=== PATIENT | male | born 1960 | race Caucasian/White ===

== ENCOUNTER 2021-02-04 13:12 | Outpatient (CLI) | payer OTHER, SELFPAY ==
--- NOTE | ~2021-02-04 | PE_ITS ---
EXAMINATION: PET skull to mid thigh DATE: 02/04/2021 14:49 INDICATION: Normal chest CT. TECHNIQUE: 11.5 mCi of 18-fluorodeoxyglucose (18-FDG) was administered i.v. Low dose computed tomogra phy (CT) images were acquired from the base of the brain to the proximal thighs for attenuation corre ction and anatomic localization. Positron emission tomography (PET) images were acquired after inject ion. Images including fused PET/CT images were reconstructed in axial, coronal, and sagittal planes. Automatic exposure control is employed as a dose reduction technique. COMPARISON: None FINDINGS: Head/neck: There is mild FDG or nasal sinuses and mastoids are pneumatized. No hypermetabolic activity otherwise noted in the head/neck. No cervical lymphadenopathy. Uptake of the laryngeal soft tissues at the lev el of the hyoid without focal mass, likely physiologic. Chest: There are shotty mediastinal lymph nodes without abnormal FDG uptake, likely reactive. There is ather osclerosis of the aorta. Heart size is normal. No significant pleural or pericardial effusion. There is severe emphysema. There is scarring at the right lung apex with associated calcifications. There i s mild FDG uptake with maximum SUV of 2.1, indeterminate for malignancy. There is linear scarring of the left midlung without abnormal FDG uptake. There is a pleural-based right lower lobe nodule measur ing 6 mm without abnormal FDG uptake. Max SUV is 0.8. There is a calcified granuloma in the left uppe r lobe. No endobronchial lesions. Small hiatal hernia. There is mild uptake in the posterior margin o f the distal esophagus with maximum SUV of 2.4, although no discrete mass is identified. No significa nt pleural or pericardial effusion. Abdomen/pelvis/proximal thighs: The liver, spleen, pancreas, adrenal glands and right kidney are unremarkable. There are left renal c ysts. There is physiologic uptake in the colon. There is atherosclerosis of the aorta without aneurys m. No lymphadenopathy. No free air or free fluid. Nonobstructive bowel gas pattern. Bladder is collap sed limiting evaluation for wall thickening. Gallbladder is present. Bones/Soft tissues: Mild-moderate thoracic spondylosis. No abnormal hypermetabolic activity is identified in the bones or soft tissues. IMPRESSION: 1. Nodular scarring right lung apex with mild FDG uptake measuring 2.1 cm, most likely postinfectious /inflammatory, although malignancy is not entirely excluded. There is additional linear scarring in t he left midlung without abnormal FDG uptake. Follow-up low dose CT chest in 6 months recommended. 2: Pleural-based 6 mm right lower lobe nodule without abnormal FDG uptake, likely benign. 3: Mild uptake posterior margin of the distal esophagus with maximum SUV of 2.4. No discrete mass katrina ntified. This is most likely physiologic. Consider correlation with upper GI examination or endoscopy as clinically indicated. 4: Severe emphysema. Reviewed, dictated and finalized at location A. NE DEPUTY IMPRESSION: 1. Nodular scarring right lung apex with mild FDG uptake measuring 2.1 cm, most likely postinfectious/inflammatory, although malignancy is not entirely exclud ed. There is additional linear scarring in the left midlung without abnormal FD G uptake. Follow-up low dose CT chest in 6 months recommended. 2: Pleural-based 6 mm right lower lobe nodule without abnormal FDG uptake, like ly benign. 3: Mild uptake posterior margin of the distal esophagus with maximum SUV of 2.4 . No discrete mass identified. This is most likely physiologic. Consider correl ation with upper GI examination or endoscopy as clinically indicated. 4: Severe emphysema.
[2021-02-04 13:37] LABS: Glucose Point of Care 87 mg/dl (65-105)
== END 2021-02-04 13:13 | disposition home or self-care (01) ==
LOC: ANHIMG 13:18
PROVIDERS: Visit Provider Internal Medicine
DX: R91.1 Solitary pulmonary nodule (principal); J43.9 Emphysema, unspecified
CPT/HCPCS: 78815; A9552

== ENCOUNTER 2022-04-25 16:53 | Inpatient (IN) | payer OTHER, SELFPAY ==
[2022-04-25] VITALS (27 sets, daily range): BP systolic 97–122; BP diastolic 58–78; PULSE 75–96; RESP 15–24; TEMP 36.4–36.6; O2SAT 62–98; BMI 25.9
--- NOTE | ~2022-04-25 | XR_ITS ---
XR chest 2V 05/02/2022 13:22 Indication: Hypoxia. Procedure: 2 view chest Comparison: CT dated 04/25/2022 Findings: There is emphysema with scarring in the upper lobes. Heart size normal. No pleural effusion or pneumothorax. No acute osseous abnormality. Impression: 1: No acute cardiopulmonary disease. 2: Emphysema with scarring of the upper lobes. Reviewed, dictated and finalized at location A. Impression: 1: No acute cardiopulmonary disease. 2: Emphysema with scarring of the upper lobes.
--- NOTE | ~2022-04-25 | XR_ITS ---
Portable chest x-ray Comparison: None Clinical History: Shortness of breath Findings: There is probable mild central congestive change. Suspected COPD. There is right apical de nsity, nonspecific, possibly chronic scarring. Cardiomediastinal silhouette is stable. Bones and sof t tissues are unremarkable. Impression: COPD with right apical density which could reflect chronic scarring versus possibly nodule. Consider CT to further evaluate. Probable minimal central congestive change. Reviewed, dictated and finalized at location . ITTER Impression: COPD with right apical density which could reflect chronic scarring versus poss ibly nodule. Consider CT to further evaluate. Probable minimal central congestive change.
--- NOTE | ~2022-04-25 | US_ITS ---
Renal-Bladder ultrasound Clinical History: Renal failure Technique: Real-time sonographic imaging of the kidneys and urinary bladder was performed. Findings: The right kidney measures 10.4 cm in length and the left kidney measures 11.4 cm. There is no hydronephrosis or renal calculus identified. Renal cortical echogenicity is within normal limits. Left renal cysts noted. The urinary bladder is partially distended at the time of this exam. No intraluminal echoes are ident ified. No abnormal wall thickening is seen. Impression: No significant abnormality seen. Reviewed, dictated and finalized at location . Impression: No significant abnormality seen.
--- NOTE | ~2022-04-25 | CT_ITS ---
Clinical Indication: Hypoxia, chest pain CT Scan of the Chest with Contrast: Technique: Contiguous sections were acquired throughout the chest after intravenous administration of 200 cc of Omnipaque 350. Dose reduction technique was used on this scan by utilizing automated expos ure control and iterative reconstruction technique. The dose-length product (DLP) was 661.92 mGy-cm. Findings: There is no evidence of any significant mediastinal, hilar or axillary lymphadenopathy. There is no f illing defect in the pulmonary arterial tree to suggest pulmonary embolus. There is no evidence of ao rtic dissection or aneurysm. There is no evidence of pleural or pericardial effusion. There is severe emphysema with right apical scarring. Images through the upper abdomen reveal no abnormalities. Impression: No evidence of pulmonary embolus, aortic dissection, or aortic aneurysm. Severe emphysema with right apical scarring. Reviewed, dictated and finalized at [facility]. L SORTER Impression: No evidence of pulmonary embolus, aortic dissection, or aortic aneurysm. Severe emphysema with right apical scarring.
--- NOTE | ~2022-04-25 | XR_ITS ---
MODIFIED ESOPHAGRAM HISTORY: Difficulty swallowing TECHNIQUE: Modified barium esophagram was performed by speech pathologist under radiologist fluorosco pic guidance. This was recorded on tape. The exam was reviewed on 05/03/2022 11:40 CDT. The DAP for this procedure was 0.415 Gycm2. Fluoroscopy time is 0.8 minutes. FINDINGS: Lateral projection of the cervical spine demonstrates normal alignment. There is vallecul ar residue. Normal swallowing function without penetration or aspiration.. IMPRESSION: 1: No evidence for laryngeal penetration or aspiration. 2: Please refer to speech pathologist report for additional detail. Reviewed, dictated and finalized at location A.
--- NOTE | 2022-04-25 17:06 | ECG_ITS ---
Measurements Intervals [place] Rate: 93 P: 65 HI: 159 QRS: 128 QRSD: 134 T: -43 QT: 373 QTc: 464 Interpretive Statements SINUS RHYTHM VENTRICULAR PREMATURE COMPLEX RIGHT BUNDLE BRANCH BLOCK AND POSSIBLE RIGHT VENTRICULAR HYPERTROPHY LEFT POSTERIOR FASCICULAR BLOCK ST-T WAVE ABNORMALITY IN ANTEROLATERAL LEADS- CONSIDER ISCHEMIA BASELINE ARTIFACT- I, II, III, AVR, AVL, AVF ABNORMAL ECG NO PREVIOUS ECG AVAILABLE FOR COMPARISON Electronically Signed On 04-25-2022 17:16:03 [employer]OR [employer] by Amaury Chinchilla D.O.
--- NOTE | 2022-04-25 17:09 | ED.SOB ---
HPI - SOB/Dyspnea General Chief Complaint: Shortness of Breath/Dyspnea <Lillian Sultana PA-C - Last Filed: 04/25/22 21:18> Stated Complaint: SHORT OF BREATH <Lillian Sultana PA-C - Last Filed: 04/25/22 21:18> Time Seen by Provider: 04/25/22 17:00 <Lillian Sultana PA-C - Last Filed: 04/25/22 21:18> History of Present Illness HPI Narrative: Patient is a 61-year-old male with a history of COPD and prostate cancer status post radiation, currently in remission, here via private vehicle with his for evaluation of shortness of breath. Patient states that he has progressively felt more dyspneic over the past 2 months. He initially had some relief from his home inhalers but over the past several days he has had no relief and has been profoundly dyspneic at rest. He wears 6 L O2 at all times but has gone up to 8 L at home. Over the past several days he has also developed a chest tightness that he describes as a thumping sensation that he has never had in the past, present in the center of his chest and does not radiate. Also reports a dry cough. No fevers, chills, nausea or vomiting, diaphoresis, leg swelling. Reports unintentional weight loss recently. He wishes to be a DNR/DNI. He was admitted to [facility] last week for COPD exacerbation. <Lillian Sultana PA-C - Last Filed: 04/25/22 21:18> Related Data Home Medications: Home Medications Medication Instructions Recorded Confirmed aspirin 81 mg tablet,delayed 81 mg PO DAILY 04/25/22 04/25/22 release bicalutamide 50 mg tablet 50 mg PO DAILY 04/25/22 04/25/22 budesonide-formoterol HFA 160 2 puff inhalation BID 04/25/22 04/25/22 mcg-4.5 mcg/actuation aerosol inhaler (Symbicort) cholecalciferol (vitamin D3) 50 50 mcg PO DAILY 04/25/22 04/25/22 mcg (2,000 unit) capsule (Vitamin D3) fluticasone fur. 100 mcg-umeclid 1 inh inhalation DAILY 04/25/22 04/25/22 62.5 mcg-vilant 25 mcg inhalat.powder (Trelegy Ellipta) furosemide 40 mg tablet 40 mg PO DAILY 04/25/22 04/25/22 megestrol 20 mg tablet 20 mg PO DAILY 04/25/22 04/25/22 meloxicam 7.5 mg tablet 7.5 mg PO DAILY 04/25/22 04/25/22 multivitamin 1 tablet PO DAILY 04/25/22 04/25/22 ondansetron HCl 4 mg tablet See Rx Instructions .Route 04/25/22 04/25/22 .COMPLEX PRN Nausea tiotropium bromide 2.5 2 puff inhalation DAILY 04/25/22 04/25/22 mcg/actuation mist for inhalation (Spiriva Respimat) <Lillian Sultana PA-C - Last Filed: 04/25/22 21:18> Allergies/Adverse Reactions: Allergies Allergy/AdvReac Type Severity Reaction Status Date / Time garlic AdvReac Vomiting Verified 04/25/22 17:12 green pepper AdvReac Vomiting Verified 04/25/22 17:12 onion AdvReac Vomiting Verified 04/25/22 17:12 <Lillian Sultana PA-C - Last Filed: 04/25/22 21:18> Review of Systems Review of Systems: Gen: Denies fevers or chills Eyes: Denies eye pain or visual change ENT: Denies congestion Respiratory: Reports shortness of breath and cough CV: Denies chest pain or palpitations GI: Denies abdominal pain nausea, emesis or diarrhea : denies burning, urgency, frequency or hematuria Musculoskeletal: Denies back pain or muscle pain Neuro: Denies numbness, tingling, weakness or focal weakness Skin: Denies rash Except as documented, all other systems reviewed and negative <Lillian Sultana PA-C - Last Filed: 04/25/22 21:18> [facility] Social History Social History: Social History Smoking packs per day: 1.25 Smoking cigarettes per day: 25.0 Years smoked: 30 Smoking pack-years: 37.50 Smoking status: Former smoker Tobacco type: cigars Additional smoking assessment comments: quit for 15 years in between Alcohol intake: former Substance use: former Substance use type: marijuana Lack of Transportation: No Lack of Food: Never True Current Housing: I Have Housing Concerned About Future Housing: No Difficulty Paying
[2022-04-25 17:20] LABS: Basophils Percent Auto 0.7 % (0.2-1.2); Eosinophils Absolute Auto 0.1 K/mm3 (0-0.3); Eosinophils Percent Auto 1.3 % (0-4.4); Hemoglobin 14.3 g/dL (14.0-18.0); Immature Granulocyte Absolute 0.02 K/mm3 (0.00-0.031); Immature Granulocyte Percent A 0.3 % (0-0.5); Lymphocytes Percent Auto 16.7 % (18.3-44.2); Mean Corpuscular HGB Conc 31.1 g/dl (32-36); Mean Corpuscular Hemoglobin 35.8 pg (26-34); Mean Corpuscular Volume 115.3 fl (80-100); Mean Platelet Volume 11.4 fl (7.4-10.4); Monocytes Absolute Auto 0.8 K/mm3 (0.1-0.6); Monocytes Percent Auto 13.5 % (2.6-8.5); Neutrophils Percent Auto 67.5 % (45.5-73.1); Platelet Count Result 154 k/mm3 (150-375); Red Blood Count 3.99 M/mm3 (4.6-6.20); Red Cell Distribution Width 14.8 % (11.5-14.5)
[2022-04-25 17:30] LABS: Alanine Aminotransferase 24 U/L (6-50); Albumin Level 4.3 g/dL (3.5-5.1); Alkaline Phosphatase 63 U/L (38-126); Anion Gap 10 mmol/L (8-16); Aspartate Amino Transferase 35 U/L (17-59); Bilirubin,Total 1.1 mg/dL (0.2-1.3); Blood Urea Nitrogen 28 mg/dL (9-20); Carbon Dioxide 26 mmol/L (22-30); Chloride 103 mmol/L (98-107); Estimated CRCL calculation 37 ml/min; Estimated Glomerular Filt Rate 39; Glucose 140 mg/dL (65-110); Potassium 3.7 mmol/L (3.4-5.0); Sodium 139 mmol/L (137-145)
[2022-04-25] MEDS: ALBUTEROL SULFATE NEB 2.5 MG/3 ML INH INHALATION (17:30)
[2022-04-25] MEDS: IPRATROPIUM BR 0.02% INH SOLN 0.5 MG/2.5 ML VIAL INHALATION (17:30)
[2022-04-25 17:32] LABS: INR 1.2; Prothrombin Time 14.4 Seconds (11.1-14.7)
[2022-04-25 17:33] LABS: Partial Thromboplastin Time 28.7 SECONDS (22.3-36.8)
[2022-04-25 17:38] LABS: Alveolar/Arterial O2 Gradient 364.5 mmHg; Base Excess ABG 1.5 mEq/l (+/-2.0); Fractional Inspired Oxygen 68 %; HCO3 ABG 25.1 mEq/l (22.0-26.0); Oxygen Content ABG 19.9 %vol (16.0-22.0); Oxygen Saturation ABG 96.4 % (95.0-100.0); Oxyhemoglobin 93.5 % THb (90.0-100.0); PCO2 ABG 36.8 mmHg (35.0-45.0); PO2 ABG 80.6 mmHg (80.0-100.0); PO2 FiO2 Ratio Arterial Blood 1.19 %; Total Hemoglobin 15.1 g/dL (12.0-18.0); pH ABG 7.452 (7.350-7.450)
[2022-04-25] MEDS: methylPREDNISolone SOD SUCC 125 MG VIAL IV PUSH (17:38)
[2022-04-25] MEDS: ASPIRIN 81 MG CHEWABLE TABLET 324 MG PO (17:38)
[2022-04-25 17:39] LABS: Device HIGH FLOW NASAL CANN; Modified Allen's Test Pass; Site Drawn RIGHT RADIAL
[2022-04-25 17:47] LABS: NT Pro B Type Natriuretic Pept 10600 pg/mL (19.9-100); Troponin I 0.719 ng/mL (0.000-0.034)
[2022-04-25 17:53] LABS: Lactic Acid Reflex 3.1 mmol/L (0.7-2.0)
[2022-04-25 18:19] LABS: Influenza A QL RT-PCR Negative (Negative); Influenza B QL RT-PCR Negative (Negative); SARS-CoV-2 RNA PCR Negative
[2022-04-25 18:20] LABS: Lipase 132 U/L (23-300)
[2022-04-25] MEDS: ONDANSETRON INJ 4 MG/2 ML VIAL IV PUSH (18:25)
[2022-04-25] MEDS: SODIUM CHLORIDE 0.9% IV 1,000 ML 999 ML IV CONT ×2 (18:25→23:09)
[2022-04-25] MEDS: NITROGLYCERIN SL 0.4 MG TABLET SUBLINGUAL (18:30)
[2022-04-25] MEDS: HEPARIN SODIUM 5,000 UNITS/ML VIAL 4000 UNITS IV PUSH (18:55)
[2022-04-25] MEDS: HEPARIN SOD/D5W 100 UNITS/ML 25,000 UNITS/250 ML BAG 9 UNITS IV CONT (18:57)
--- NOTE | 2022-04-25 20:21 | ADMGEN ---
This patient, Bijan Real, was admitted to IMU Room 212-01. Patient/family oriented to hospital policies and general routines including ID bracelet, bed and alarms, visiting hours, pain management, procedures, bathroom and other care routines, personal items, smoking policy, room service/diet, and visiting hours. Information on how to activate the Rapid Response Team has been discussed. Patient/Family are encouraged to report perceived risks to care and to ask questions if they do not understand what they are told or what they should do.
[2022-04-25 20:40] LABS: Troponin I 0.998 ng/mL (0.000-0.034)
[2022-04-25 20:41] LABS: Reflex Lactic Acid Yes or No Add Lactic
[2022-04-25 21:42] LABS: Lactic Acid 3.3 mmol/L (0.7-2.0)
[2022-04-25 21:44] LABS: Magnesium 1.9 mg/dL (1.6-2.3)
--- NOTE | 2022-04-25 21:53 | PM.IMHP ---
H&P: HPI History of Present Illness Date/Time: 04/25/22 21:53 Chief Complaint: Shortness of breath dyspnea Narrative: This is a 61-year-old male patient who has a history of COPD, prostate cancer status post radiation status post remission, and chronic hypoxia chronically on oxygen at 6 L per nasal cannula. The patient has felt increased dyspnea or last 2 months. The patient came to the emergency room with his mother. The patient stated that he felt some tightness in his chest and that he also had a dry cough. He denied any fever chills or any nausea vomiting or diarrhea no diaphoresis. No leg swelling. The patient stated he does wish to be a DNR DNI. The patient was admitted to [facility] last week for COPD exacerbation. The patient's oxygen was turned up to 15 L in the emergency room. Patient's O2 saturation were all way down to 62% with a 6 L initially now is O2 saturations came up to 96% with oxygen at 15 L per nasal cannula. Patient's blood pressure was also low. ABGs pH 7.452 and the rest of the values were within normal limits. BUN is 28 creatinine 1.80. Lactic acid is 3.3 and glucose 140. No previous labs for comparison. Troponin 0.719 and 0.998 and 0.854. Chest CTA was read as the followingNo evidence of pulmonary embolus, aortic dissection, or aortic aneurysm. Severe emphysema with right apical scarring. Chest x-ray was read as the followingCOPD with right apical density which could reflect chronic scarring versus possibly nodule. Consider CT to further evaluate. Probable minimal central congestive change. The patient was given nebulizer treatments, IV fluids, IV Tylenol, and he was started on heparin drip. He was also given an aspirin and Zofran as well as a nitro sublingual. Cardiology has been consulted. The patient is being admitted to inpatient status on the date of service of 04/25/2022 Review of Systems Review of Systems: See HPI All systems reviewed & are unremarkable except as noted in HPI and below Constitutional: Constitutional: Reports as per HPI and Reports no additional constitutional complaints Eyes: Eyes: Reports as per HPI and Reports no additional eye complaints ENT: Reports system reviewed and no additional complaints, except as documented and Reports Normal hearing present Cardiovascular: Cardiovascular: Reports no additional cardiovascular complaints Respiratory: Respiratory: Reports no additional respiratory complaints and Reports no additional respiratory complaints Gastrointestinal: Gastrointestinal: Reports as per HPI and Reports no additional gastrointestinal complaints Musculoskeletal: Musculoskeletal: Reports no additional musculoskeletal complaints Integumentary/Breasts: Skin/Breast: Reports system reviewed and no additional complaints, except as docu and Reports as per HPI Neurologic: Reports system reviewed and no additional complaints, except as documented, Reports as per HPI and Reports Normal hearing present Psychiatric: Psychiatric: Reports no additional psychiatric complaints and Reports as per HPI Endocrine: Endocrine: Reports no additional endocrine complaints Hematologic/Lymphatic: Hematologic/Lymphatic: Reports no additional hematologic/lymphatic complaints Allergic/Immunologic: Allergic/Immunologic: Reports no additional allergic/immunologic complaints [facility] Past Medical History Medical History (Updated 04/26/22 @ 01:09 by Lori Barclay NP) Chronic respiratory failure with hypoxia, on home oxygen therapy COPD (chronic obstructive pulmonary disease) Diverticulitis History of prostate cancer Surgical History Surgical History (Updated 04/26/22 @ 00:52 by Lori Barclay NP) Total knee replacement status Bilateral Family History Family History (Updated 04/26/22 @ 00:53 by Lori Barclay NP) Legal Guardian Hypertension Father Cancer Lung cancer Sibling Acute myocardial infarction Social History Social History (
[2022-04-25 23:54] LABS: Troponin I 0.854 ng/mL (0.000-0.034)
[2022-04-26] VITALS (20 sets, daily range): BP systolic 103–123; BP diastolic 53–65; PULSE 69–107; RESP 16–28; TEMP 36.3–37.2; O2SAT 90–97
[2022-04-26] MEDS: ONDANSETRON INJ 4 MG/2 ML VIAL IV PUSH (01:03)
--- NOTE | 2022-04-26 01:20 | PC.NURSE ---
Patient complaining of nausea. Denies chest pain. QT 373, QTc 464. Zofran 4mg IVP given. States nausea is improving.
[2022-04-26 01:51] LABS: Partial Thromboplastin Time 54.9 SECONDS (22.3-36.8)
[2022-04-26] MEDS: HEPARIN SODIUM 5,000 UNITS/ML VIAL 4000 UNITS IV PUSH (03:14)
--- NOTE | 2022-04-26 03:26 | PC.NURSE ---
Daylight Savings Time For Daylight Savings Time Ending in the Fall - Clocks are moved back. For Daylight Savings Time Beginning in the Spring - Clocks are moved ahead. For [facility], the time of change occurs at 0200 hrs. Time is taken from the windows server administrator. This entry on the patient's chart recognizes the change in time reflected during documentation. Example: 2 entries for vital signs may be charted for 0200 hrs.
[2022-04-26] MEDS: methylPREDNISolone SOD SUCC 125 MG VIAL 60 MG IV PUSH ×2 (06:14→15:03)
[2022-04-26] MEDS: CHOLECALCIFEROL 1,000 UNITS TABLET 2000 UNITS PO (08:28)
[2022-04-26] MEDS: BICALUTAMIDE (*CHEMO) 50 MG TABLET PO (08:28)
[2022-04-26] MEDS: ASPIRIN 81 MG ENTERIC TABLET PO (08:28)
[2022-04-26] MEDS: FUROSEMIDE 40 MG TABLET PO (08:28)
[2022-04-26] MEDS: MULTIVITAMINS THERAPEUTIC TAB (*BKC) 1 TABLET PO (08:28)
[2022-04-26] MEDS: ALBUTEROL SULFATE NEB 2.5 MG/3 ML INH INHALATION ×3 (08:57→20:20)
[2022-04-26] MEDS: IPRATROPIUM BR 0.02% INH SOLN 0.5 MG/2.5 ML VIAL INHALATION ×3 (08:57→20:20)
[2022-04-26 09:24] LABS: Basophils Percent Auto 0.2 % (0.2-1.2); Hematocrit 47.1 % (42.0-52.0); Hemoglobin 14.5 g/dL (14.0-18.0); Immature Granulocyte Absolute 0.02 K/mm3 (0.00-0.031); Immature Granulocyte Percent A 0.3 % (0-0.5); Lymphocytes Absolute Auto 0.57 K/mm3 (0.9-3.2); Mean Corpuscular HGB Conc 30.8 g/dl (32-36); Mean Corpuscular Hemoglobin 36.8 pg (26-34); Mean Corpuscular Volume 119.5 fl (80-100); Mean Platelet Volume 10.8 fl (7.4-10.4); Monocytes Absolute Auto 0.2 K/mm3 (0.1-0.6); Monocytes Percent Auto 2.4 % (2.6-8.5); Neutrophils Absolute Auto 5.6 K/mm3 (1.3-6.7); Neutrophils Percent Auto 88.1 % (45.5-73.1); Nucleated Red Blood Cells Perc 0.5 % (0.0-0.2); Platelet Count Result 120 k/mm3 (150-375); Red Blood Count 3.94 M/mm3 (4.6-6.20); Red Cell Distribution Width 14.8 % (11.5-14.5); White Blood Count 6.4 K/mm3 (4.5-10.0)
[2022-04-26 09:40] LABS: Partial Thromboplastin Time 106.8 SECONDS (22.3-36.8)
[2022-04-26 09:49] LABS: Albumin Level 4.2 g/dL (3.5-5.1); Alkaline Phosphatase 80 U/L (38-126); Anion Gap 12 mmol/L (8-16); Aspartate Amino Transferase 31 U/L (17-59); Bilirubin,Total 0.8 mg/dL (0.2-1.3); Blood Urea Nitrogen 24 mg/dL (9-20); Calcium 8.9 mg/dL (8.4-10.2); Carbon Dioxide 23 mmol/L (22-30); Chloride 102 mmol/L (98-107); Estimated CRCL calculation 44 ml/min; Estimated Glomerular Filt Rate 48; Glucose 269 mg/dL (65-110); Magnesium 1.9 mg/dL (1.6-2.3); Phosphorus 3.4 mg/dL (2.5-4.5); Potassium 3.8 mmol/L (3.4-5.0); Sodium 137 mmol/L (137-145)
[2022-04-26 09:53] LABS: Lactic Acid Reflex 4.6 mmol/L (0.7-2.0)
[2022-04-26 09:56] LABS: Alanine Aminotransferase 38 U/L (6-50)
--- NOTE | 2022-04-26 11:25 | PM.CNCAR ---
Assessment and Plan Assessment and plan (1) Elevated troponin: Code(s): R77.8 - Other specified abnormalities of plasma proteins Status: Acute Assessment and Plan: In the setting of acute on chronic hypoxic respiratory failure with severe hypoxia on presentation, LOTUS EKG with RBBB. Troponins 0.719 --> 0.998 --> 0.854. Patient does report diffuse chest tightness that has been ongoing and constant for 3-4 weeks now that has not changed and is not affected by exertion. No clear pleuritic component to it. He reports pain becomes more defined when I evaluated him for reproducible chest pain. I do not think this is an ACS presentation at this time, appears to be demand ischemia. Okay to stop Heparin drip. Continue with ASA. Will obtain an echocardiogram. (2) Acute on chronic respiratory failure with hypoxemia: Code(s): J96.21 - Acute and chronic respiratory failure with hypoxia Status: Acute Assessment and Plan: Management as per Hospitalist. (3) End stage COPD: Code(s): J44.9 - Chronic obstructive pulmonary disease, unspecified Status: Acute Assessment and Plan: Patient has advanced emphysema with bullous changes noted on recent CT chest. Patient wants to be DNR/DNI because of his advanced COPD. Consider palliative care. Plan Recommendations/plan discussed with Hospitalist, Dr. Thompson. History of Present Illness History of Present Illness Consult date/time: 04/26/22 11:25 Requesting physician: Lillian Sultana PA-C Consult reason: chest pain and Other (Elevated troponin) Reason For Visit: NSTEMI, COPD exacerbation Narrative: We are consulted for chest pain and elevated troponin. This is a 61-year-old male with a history of advanced COPD with chronic hypoxic respiratory failure, prostate cancer who presented to [facility] for shortness of breath. Patient found to be profoundly hypoxic at 63% on 6L. Patient was started on HFNC in the ER with improvement in his oxygen saturations to the 90s. Initial troponin of 0.7. Lactic acid 3.1. CTA showed severe emphysema with right apical scarring. Patient was given fluids, Solumedrol, and Duoneb. Also given ASA, started on Heparin drip. Patient reports that he has had progressive dyspnea and shortness of breath over the past 2 months. He reports chest tightness that is across his chest. Chest tightness began about 3-4 weeks ago and it has been constant. No change with exertion. Unclear if breathing makes it worse because patient states he tries not to take deep breaths. Patient reports that his chest tightness has been unchanged since it began 3-4 weeks ago. Of note, patient was admitted at [facility] in February for similar presentation and symptoms. I have reviewed records of that hospitalization, along with his recent Oncology and Pulmonology clinic notes from outside sources. He was treated for COPD exacerbation. Had elevated troponins at that time (246 --> 251 --> 143 --> 154). He was treated with Heparin drip. Echo showed LVEF 60-65%, moderately-severely enlarged RV, normal RVSF, septal flattening in both diastole and systole consistent with both RV pressure and volume overload, mild-moderately enlarged RA, mild-moderate TR, RVSP of 50-60mmHg, small PFO. Review of Systems Review of Systems: All systems reviewed & are unremarkable except as noted in HPI and below (HPI) PMFSH Past Medical History Medical History Chronic respiratory failure with hypoxia, on home oxygen therapy COPD (chronic obstructive pulmonary disease) Diverticulitis History of prostate cancer Surgical History Surgical History Total knee replacement status Bilateral Family History Family History Legal Guardian Hypertension Father Cancer Lung cancer Sibling Acute myocardial infarct
--- NOTE | 2022-04-26 11:28 | PM.IMPN ---
Progress Note: A&P Assessment and Plan (1) Chronic respiratory failure with hypoxia, on home oxygen therapy: Code(s): J96.11 - Chronic respiratory failure with hypoxia; Z99.81 - Dependence on supplemental oxygen Status: Acute Assessment and Plan: Multifactorial, likely secondary to end-stage COPD, pulmonary hypertension and right-sided heart failure (2) End stage COPD: Code(s): J44.9 - Chronic obstructive pulmonary disease, unspecified Status: Acute Assessment and Plan: Usually on 5-6 L nasal cannula at baseline, requiring 10-15 L high-flow today Cont albuterol/ipratroprium sched Q6h, hold trelegy Solumedrol 60 mg q8h for now Pulmonology consult ordered and pending (3) History of prostate cancer: Code(s): Z85.46 - Personal history of malignant neoplasm of prostate Status: Acute Assessment and Plan: s/p chemo + radiation, just completed last month, now in remission per patient (4) Chronic kidney disease: Code(s): N18.9 - Chronic kidney disease, unspecified Status: Acute Assessment and Plan: unsure of baseline, creatinine down to 1.5 today from 1.8 at admission (5) Elevated troponin: Code(s): R77.8 - Other specified abnormalities of plasma proteins Status: Acute Assessment and Plan: likely 2/2 CKD, do not suspect acute cardiac etiology (6) Acute on chronic respiratory failure with hypoxemia: Code(s): J96.21 - Acute and chronic respiratory failure with hypoxia Status: Acute Assessment and Plan: worsening COPD with an acute exacerbation (7) Pulmonary hypertension: Code(s): I27.20 - Pulmonary hypertension, unspecified Status: Acute Assessment and Plan: moderate per last echo (8) Cor pulmonale: Code(s): I27.81 - Cor pulmonale (chronic) Status: Acute Assessment and Plan: severe right sided heart failure noted (9) PFO (patent foramen ovale): Code(s): Q21.12 - Patent foramen ovale Status: Acute Assessment and Plan: small per last echo 02/2022 Plan DVT prophylaxis with Lovenox GI prophylaxis not indicated Code status DNR/DNI Subjective Date/time seen: 04/26/22 11:28 Interval history: 61-year-old male with end-stage COPD on 6 L at baseline, right sided heart failure, CKD with baseline appearing to be 1.3-1.5, history of prostate cancer now in remission, is presenting with acute on chronic respiratory failure and worsening chest tightness, pulm HTN, PFO, thought to be secondary to COPD exacerbation, admitted with steroids and breathing treatments, no signs of infection. Cardiology was consulted for elevated troponins and abnormal ECG, they do not suspect cardiac etiology. Symptoms thought to be secondary to severe, end-stage COPD with pulmonary hypertension and cor pulmonale. Additional [facility] obtained [facility] printed in paper chart and summarized below: Patient recently admitted to [facility] in February 19-2022 for COPD exacerbation, syncopal episode, NSTEMI/type 2 [place] and heart failure exacerbation. He improved somewhat with IV diuresis, rocephin + azithromycin and completed prednisone x 5 days. He required up to 10L oxymizer, 6L at rest/8L with exertion at discharge. Creat fluctuated 1.4-1.3-1.5. H/o prostate cancer, completed brachytherapy 12/15/21, and completed radiation last month or so at the [facility], now in remission per patient report. PFTs done 04/14/22, will need to obtain records. Screen shot in paper chart of some of the data acquired. CT chest w/o contrast 04/14/22 showed RLL pulm nodule, advanced emphysema, bullous changes. Copy of report printed off from [facility] and in paper chart. Echo from February 20, 2022 showed an EF of 60-65% with normal diastolic function, severely enlarged right ventricle, moderate pulmonary hypertension and a small PFO. He
[2022-04-26] MEDS: MEGESTROL ACETATE (*CHEMO) 20 MG TABLET PO (11:33)
[2022-04-26 12:20] LABS: Reflex Lactic Acid Yes or No Add Lactic
[2022-04-26 13:28] LABS: Lactic Acid 5.1 mmol/L (0.7-2.0)
--- NOTE | 2022-04-26 14:43 | PM.CNPUL ---
Assessment and Plan Assessment and plan (1) COPD exacerbation: Code(s): J44.1 - Chronic obstructive pulmonary disease with (acute) exacerbation Status: Acute Assessment and Plan: Patient with a 38 pack year tobacco history, quit in December of 2021, pre bronchodilator FEV1 of 2.17 L, FEV1: FVC ratio of 62%, severe apical predominant panlobular emphysema on his CT scan of the chest, hypoxemic respiratory failure requiring 6 L at rest and 8 L with ambulation and 6 L at sleep, no evidence of acute or chronic hypercarbic respiratory failure with a blood gas of 7.45/37/81 on 12 L nasal cannula, 1 hospitalization for COPD exacerbation in February 2022, dyspnea on exertion at 1/4 block, pulmonary hypertension with an estimated RVSP of 50-60 and a PFO. Currently the patient has worsening shortness of breath, worsening hypoxemia, and a dry cough with no phlegm production. I will treat him for COPD exacerbation. There is no evidence of acute or chronic hypercarbic respiratory failure 04/26 The patient tells me that he is breathing normal when he sits but when he does any activity he is short of breath. He denies fever, chills, rigors. He has a dry cough with no phlegm production. Overall he states he is 10% better than when he presented. his white blood cell count is 6.4, his creatinine is improved from 1.8 2 value of 1.5, serum bicarb is 23. his weight is unchanged at 75 kg, his ins and outs demonstrate he is 2.2 L positive. Plan: Will change his Solu-Medrol to 20 mg IV q.6 hours, I will increase his ipratropium nebulizers at 0.5 mg from q.6 hours to q.4 hours. Tessalon Perles 100 mg p.o. t.i.d. At this time he has no phlegm production and no evidence of pneumonia on his CT angiogram of the chest and I do not see need for antibiotics. Patient's FEV1 is 2.17 L and I do not have any normal reference is or the date of this study. his FEV1: FVC ratio 62%. If this is a recent study, the FEV1 is low but not severely decreased. He does not have hypercarbic respiratory failure. He does not have any shortness of breath at rest and is able to do some chores, grocery shop and walk throughout his house on a good day. He does not wish for intubation or BiPAP. I recommend continued aggressive treatment to see how he responds prior to initiating hospice or palliative care. discussed with Dr. Thompson, will follow with you. (2) Chronic respiratory failure with hypoxia, on home oxygen therapy: Code(s): J96.11 - Chronic respiratory failure with hypoxia; Z99.81 - Dependence on supplemental oxygen Status: Acute Assessment and Plan: At baseline the patient uses 6 L at rest, 8 L with ambulation and 6 L when he sleeps. Etiology of patient's hypoxemic respiratory in failure include COPD, pulmonary hypertension and PFO / when I enter the room the patient was on 15 L nasal cannula saturations 97%. I decreased to 10 L nasal cannula saturations were 95%. I decreased him to 8 L nasal cannula and his saturations were 92%. When the patient moved in bed to sit up so that I could listen to his lungs from the back he desatted to 84 and over the next minute he recovered to 91%. (3) PFO (patent foramen ovale): Code(s): Q21.12 - Patent foramen ovale Status: Acute Assessment and Plan: echo report from [facility] 02/20/2022 Echo showed LVEF 60-65%,, no left ventricular hypertrophy, left ventricular diastolic function is normal, RV size is moderately to severely enlarged, right ventricular systolic function is normal, septal flattening demonstrated in both asked leak and systole, right atrial size is moderately enlarged trace MR, trace p.r., [id number] TR with RVSP 50-60. The agitated saline injection showed evidence of shunting into the left atrium, consistent with a small patent foramen ovale. Patient does have COPD but is FEV1 is 2.17 L and his dyspnea on exertion and hypoxic respi
[2022-04-26] MEDS: ENOXAPARIN 40 MG/0.4 ML SYRINGE SUB-Q (15:02)
[2022-04-26] MEDS: LORazepam INJ (*CRX) 2 MG/ML VIAL 1 MG IV PUSH (15:03)
[2022-04-26] MEDS: BENZONATATE 100 MG CAPSULE PO ×2 (15:03→17:14)
[2022-04-26] MEDS: methylPREDNISolone SOD SUCC 40 MG VIAL 20 MG IV PUSH (23:49)
[2022-04-27] VITALS (28 sets, daily range): BP systolic 109–127; BP diastolic 55–68; PULSE 76–111; RESP 18–22; TEMP 36.6–37.2; O2SAT 90–100
[2022-04-27] MEDS: ALBUTEROL SULFATE NEB 2.5 MG/3 ML INH INHALATION ×6 (00:25→23:53)
[2022-04-27] MEDS: IPRATROPIUM BR 0.02% INH SOLN 0.5 MG/2.5 ML VIAL INHALATION ×6 (00:25→23:53)
[2022-04-27 04:59] LABS: Hematocrit 40.7 % (42.0-52.0); Hemoglobin 13.2 g/dL (14.0-18.0); Mean Corpuscular HGB Conc 32.4 g/dl (32-36); Mean Corpuscular Hemoglobin 37.2 pg (26-34); Mean Corpuscular Volume 114.6 fl (80-100); Platelet Count Result 131 k/mm3 (150-375); Red Blood Count 3.55 M/mm3 (4.6-6.20); Red Cell Distribution Width 15.1 % (11.5-14.5); White Blood Count 9.1 K/mm3 (4.5-10.0)
[2022-04-27 05:08] LABS: Lactic Acid Reflex 2.3 mmol/L (0.7-2.0)
[2022-04-27 05:17] LABS: NT Pro B Type Natriuretic Pept 3720 pg/mL (19.9-100)
[2022-04-27 05:21] LABS: Anion Gap 5 mmol/L (8-16); Blood Urea Nitrogen 28 mg/dL (9-20); Calcium 8.7 mg/dL (8.4-10.2); Carbon Dioxide 30 mmol/L (22-30); Chloride 103 mmol/L (98-107); Estimated CRCL calculation 51 ml/min; Estimated Glomerular Filt Rate 56; Glucose 167 mg/dL (65-110); Potassium 4.1 mmol/L (3.4-5.0); Sodium 138 mmol/L (137-145)
[2022-04-27] MEDS: methylPREDNISolone SOD SUCC 40 MG VIAL 20 MG IV PUSH ×3 (05:43→17:31)
[2022-04-27 07:56] LABS: Reflex Lactic Acid Yes or No Add Lactic
--- NOTE | 2022-04-27 08:39 | PM.IMPN ---
Progress Note: A&P Assessment and Plan (1) Chronic respiratory failure with hypoxia, on home oxygen therapy: Code(s): J96.11 - Chronic respiratory failure with hypoxia; Z99.81 - Dependence on supplemental oxygen Status: Acute Assessment and Plan: Multifactorial, likely secondary to end-stage COPD, pulmonary hypertension and right-sided heart failure with PFO Appreciate pulm + cardio consults Wean oxygen aggressively, up to chair, ambulate when able Try PT/OT tomorrow (2) End stage COPD: Code(s): J44.9 - Chronic obstructive pulmonary disease, unspecified Status: Acute Assessment and Plan: Usually on 5-6 L nasal cannula at baseline, requiring 10-15 L high-flow, wean to keep sats closer to 92-94% Cont albuterol/ipratroprium sched Q4h, hold trelegy Solumedrol 20 mg q6h started Pulmonology consult appreciated (3) History of prostate cancer: Code(s): Z85.46 - Personal history of malignant neoplasm of prostate Status: Acute Assessment and Plan: s/p chemo + radiation, just completed last month, now in remission per patient (4) Chronic kidney disease: Code(s): N18.9 - Chronic kidney disease, unspecified Status: Acute Assessment and Plan: unsure of baseline, creatinine down to 1.3 today from 1.8 at admission (5) Elevated troponin: Code(s): R77.8 - Other specified abnormalities of plasma proteins Status: Acute Assessment and Plan: likely 2/2 CKD, do not suspect acute cardiac etiology (6) Acute on chronic respiratory failure with hypoxemia: Code(s): J96.21 - Acute and chronic respiratory failure with hypoxia Status: Acute Assessment and Plan: worsening COPD with an acute exacerbation management per above (7) Pulmonary hypertension: Code(s): I27.20 - Pulmonary hypertension, unspecified Status: Acute Assessment and Plan: moderate per last echo (8) Cor pulmonale: Code(s): I27.81 - Cor pulmonale (chronic) Status: Acute Assessment and Plan: severe right-sided heart failure noted (9) PFO (patent foramen ovale): Code(s): Q21.12 - Patent foramen ovale Status: Acute Assessment and Plan: small per last echo 02/2022 repeat echo pending R>L shunting risk for hypoxemia noted Plan DVT prophylaxis with Lovenox GI prophylaxis not indicated Code status DNR/DNI Subjective Date/time seen: 04/27/22 08:39 Interval history: 61-year-old male with end-stage COPD on 6 L at baseline, right sided heart failure, CKD with baseline appearing to be 1.3-1.5, history of prostate cancer now in remission, is presenting with acute on chronic respiratory failure and worsening chest tightness, pulm HTN, PFO, thought to be secondary to COPD exacerbation, admitted with steroids and breathing treatments, no signs of infection. Cardiology was consulted for elevated troponins and abnormal ECG, they do not suspect cardiac etiology. Symptoms thought to be secondary to severe, end-stage COPD with pulmonary hypertension and cor pulmonale. Additional history obtained by reviewing epic with Cardiology printed in paper chart and summarized below: Patient recently admitted to [facility] in February 19-2022 for COPD exacerbation, syncopal episode, NSTEMI/type 2 [place] and heart failure exacerbation. He improved somewhat with IV diuresis, rocephin + azithromycin and completed prednisone x 5 days. He required up to 10L oxymizer, 6L at rest/8L with exertion at discharge. Creat fluctuated 1.4-1.3-1.5. H/o prostate cancer, completed brachytherapy 12/15/21, and completed radiation last month or so at the [facility], now in remission per patient report. PFTs done 04/14/22, will need to obtain records. Screen shot in paper chart of some of the data acquired. CT chest w/o contrast 04/14/22 showed RLL pulm nodule, advanced emphysema, bullous changes. Copy
[2022-04-27] MEDS: CHOLECALCIFEROL 1,000 UNITS TABLET 2000 UNITS PO (09:12)
[2022-04-27] MEDS: ASPIRIN 81 MG ENTERIC TABLET PO (09:13)
[2022-04-27] MEDS: BICALUTAMIDE (*CHEMO) 50 MG TABLET PO (09:13)
[2022-04-27] MEDS: MULTIVITAMINS THERAPEUTIC TAB (*BKC) 1 TABLET PO (09:13)
[2022-04-27] MEDS: ENOXAPARIN 40 MG/0.4 ML SYRINGE SUB-Q (09:13)
[2022-04-27] MEDS: FUROSEMIDE 40 MG TABLET PO (09:13)
[2022-04-27] MEDS: BENZONATATE 100 MG CAPSULE PO ×3 (09:16→17:38)
[2022-04-27 09:20] LABS: Lactic Acid 3.6 mmol/L (0.7-2.0)
[2022-04-27] MEDS: MEGESTROL ACETATE (*CHEMO) 20 MG TABLET PO (09:39)
--- NOTE | 2022-04-27 09:43 | PM.PNCARD ---
Progress Note: A&P Assessment and Plan (1) Elevated troponin: Code(s): R77.8 - Other specified abnormalities of plasma proteins Status: Acute Assessment and Plan: In the setting of acute on chronic hypoxic respiratory failure with severe hypoxia on presentation, LOTUS. EKG with RBBB. Troponins 0.719 --> 0.998 --> 0.854. This does not represent ACS. Today he is denying any chest pain Heparin has been discontinued. Continue with ASA Echo performed this morning, results are pending. Will leave any further recommendations after review of the results. (2) Acute on chronic respiratory failure with hypoxemia: Code(s): J96.21 - Acute and chronic respiratory failure with hypoxia Status: Acute Assessment and Plan: Management as per Hospitalist. (3) End stage COPD: Code(s): J44.9 - Chronic obstructive pulmonary disease, unspecified Status: Acute Assessment and Plan: Patient has advanced emphysema with bullous changes noted on recent CT chest. Patient wants to be DNR/DNI because of his advanced COPD. Consider palliative care. Subjective Date/time seen: 04/27/22 09:43 Cardiology follow up for chest pain Feels well this morning has no complaints. He is denying any chest pain. Breathing has improved. Review of Systems Review of Systems: All systems reviewed & are unremarkable except as noted in HPI and below (HPI) Exam Const: General: no acute distress Other: Appears older than stated age HENMT: Mouth: Yes moist mucous membranes Eyes: General: appearance normal, both eyes and all related structures Sclera: sclerae normal Neck: Neck: supple Resp: Auscultation: diminished lung sounds Other: On HFNC Cardio: Rate: regular rate Rhythm: regular rhythm Heart sounds: Murmur heart sound present systolic Skin: General skin exam: normal color Neuro: Speech: normal speech Extrem: General: normal to inspection Psych: Mental Status: mental status grossly normal Affect: normal affect Objective Data Vital Signs Vital Signs: Vital Signs - 24 hr 04/26/22 10:00 04/26/22 12:00 04/26/22 12:00 Temperature 36.5 C Pulse Rate 79 92 88 Respiratory Rate 28 H Blood Pressure 103/53 L Pulse Oximetry 94 Oxygen Delivery Oxygen Flow Rate 04/26/22 12:00 04/26/22 14:00 04/26/22 14:54 Temperature Pulse Rate 95 95 Respiratory Rate 18 Blood Pressure Pulse Oximetry 91 Oxygen Delivery High Flow Nasal Cannula Oxygen Flow Rate 15 04/26/22 15:13 04/26/22 16:00 04/26/22 16:00 Temperature Pulse Rate 96 107 H Respiratory Rate 18 Blood Pressure Pulse Oximetry 97 Oxygen Delivery High Flow Nasal Cannula Oxygen Flow Rate 8 04/26/22 18:00 04/26/22 16:00 04/26/22 20:21 Temperature 36.6 C Pulse Rate 102 H 107 H 92 Respiratory Rate 20 18 Blood Pressure 104/55 L Pulse Oximetry 90 Oxygen Delivery Oxygen Flow Rate 04/26/22 20:21 04/26/22 20:36 04/26/22 20:00 Temperature Pulse Rate 87 97 Respiratory Rate 18 Blood Pressure Pulse Oximetry 93 Oxygen Delivery High Flow Nasal Cannula Oxygen Flow Rate 8 04/26/22 20:00 04/26/22 22:00 04/26/22 23:12 Temperature 37.2 C 37.2 C Pulse Rate 103 H 104 H 101 H Respiratory Rate 18 16 Blood Pressure 123/65 109/53 L Pulse Oximetry 93 96 Oxygen Delivery Oxygen Flow Rate 04/26/22 23:58 04/27/22 00:25 04/27/22 00:35 Temperature Pulse Rate 85 81 Respiratory Rate 18 18 Blood Pressure Pulse Oximetry 96 Oxygen Delivery High Flow Nasal Cannula Oxygen Flow Rate 15 04/27/22 00:00 04/27/22 02:00 04/27/22 04:00 Temperature Pulse Rate 90 92 83 Respiratory Rate Blood Pressure Pulse Oximetry Oxygen Delivery Oxygen Flow Rate 04/27/22 04:00 04/27/22 06:00 04/27/22 07:51 Temperature 36.6 C Pulse Rate 85 76 80 Respiratory Rate 20 18 Blood Pressure 109/55 L Pulse Oximetry 97
--- NOTE | 2022-04-27 16:32 | ECHO_ITS ---
Patient Info Name: Bijan Real Age: 61 years : 1960 Gender: Male Ht: 67 in Wt: 165 lbs BSA: 1.89 m2 HR: 76 bpm BP: 109 / 55 mmHg Heart Rhythm: Sinus Rhythm Technical Quality: Fair Exam Date: 04/27/2022 6:46 AM Exam Location: [facility] Pulmonary Patient Status: Inpatient Admit Date: 04/25/2022 Staff Ordering Physician: Davi Hernandez MD It Operations Manager: Sheron Samano RDCS Attending Provider: Glenda Thompson DO Referring Physician: David POTTS; Exam Type: CA echo dop bubble study w con Study Info Indications - hypoxia, asses for pfo Complete two-dimensional, color flow and Doppler transthoracic echocardiogram is performed with agitated saline. Contrast/Agitated Saline Contrast/Ag. Saline: Agitated Saline Amount: 20.00 ml Administered By: Sheron Samano RDCS Existing IV Access: Yes IV Access Condition: patent with no signs of infiltration Summary 1. Left ventricular chamber dimension is normal. 2. Left ventricular systolic function is normal, estimated at 65-70%. 3. Left ventricular septal wall motion is abnormal with septal motion related to bundle branch block. 4. The left ventricular diastolic function is grade I diastolic dysfunction. 5. Right ventricular chamber dimension is severely enlarged. 6. Flattening of the ventricular septum in mid to late diastole consistent with right ventricular volume overload. 7. Right ventricular systolic function is normal. 8. Suspected patent foramen ovale visualized by agitated saline imaging. Small right to left shunt with Bubble study. 9. There is mild to moderate tricuspid valve regurgitation. 10. Normal inferior vena cava with >50% collapse upon inspiration consistent with normal right atrial pressure, 3 mmHg. Left Ventricle Left ventricular chamber dimension is normal. Left ventricular systolic function is normal, estimated at 65-70%. There is no increased left ventricular wall thickness. Left ventricular septal wall motion is abnormal with septal motion related to bundle branch block. The left ventricular diastolic function is grade I diastolic dysfunction. Right Ventricle Flattening of the ventricular septum in mid to late diastole consistent with right ventricular volume overload. Right ventricular chamber dimension is severely enlarged. Right ventricular systolic function is normal. Left Atria Left atrial chamber dimension is normal. Right Atria Right atrial chamber dimension is normal. Atrial Septum Suspected patent foramen ovale visualized by agitated saline imaging. Small right to left shunt with Bubble study. Aortic Valve The aortic valve is trileaflet. There is no aortic valve stenosis. There is no aortic valve regurgitation. Pulmonic Valve The pulmonic valve is not well visualized. Mitral Valve The mitral valve has normal leaflets. There is no mitral valve stenosis. There is trace mitral valve regurgitation. The mitral valve annulus is mildly calcified. Tricuspid Valve There is mild to moderate tricuspid valve regurgitation. Pericardium/Pleural There is no pericardial effusion. Inferior Vena Cava Normal inferior vena cava with >50% collapse upon inspiration consistent with normal right atrial pressure, 3 mmHg. Aorta The aortic root size at the sinus of Valsalva is normal. There is mild aortic atherosclerosis. Left Ventricular Outflow Tract
--- NOTE | 2022-04-27 19:57 | P.PNPL_ITS ---
Progress Note: A&P Assessment and Plan (1) COPD exacerbation: Code(s): J44.1 - Chronic obstructive pulmonary disease with (acute) exacerbation Status: Acute Assessment and Plan: Patient with a 38 pack year tobacco history, quit in December of 2021, pre bronchodilator FEV1 of 2.17 L, FEV1: FVC ratio of 62%, severe apical predominant panlobular emphysema on his CT scan of the chest, hypoxemic respiratory failure requiring 6 L at rest and 8 L with ambulation and 6 L at sleep, no evidence of acute or chronic hypercarbic respiratory failure with a blood gas of 7.45/37/81 on 12 L nasal cannula, 1 hospitalization for COPD exacerbation in February 2022, dyspnea on exertion at 1/4 block, pulmonary hypertension with an estimated RVSP of 50-60 and a PFO. Currently the patient has worsening shortness of breath, worsening hypoxemia, and a dry cough with no phlegm production. I will treat him for COPD exacerbation. There is no evidence of acute or chronic hypercarbic respiratory failure 04/26 The patient tells me that he is breathing normal when he sits but when he does any activity he is short of breath. He denies fever, chills, rigors. He has a dry cough with no phlegm production. Overall he states he is 10% better than when he presented. his white blood cell count is 6.4, his creatinine is improved from 1.8 2 value of 1.5, serum bicarb is 23. his weight is unchanged at 75 kg, his ins and outs demonstrate he is 2.2 L positive. Plan: Will change his Solu-Medrol to 20 mg IV q.6 hours, I will increase his ipratropium nebulizers at 0.5 mg from q.6 hours to q.4 hours. Tessalon Perles 100 mg p.o. t.i.d. At this time he has no phlegm production and no evidence of pneumonia on his CT angiogram of the chest and I do not see need for antibiotics. Patient's FEV1 is 2.17 L and I do not have any normal reference is or the date of this study. His FEV1: FVC ratio 62%. If this is a recent study, the FEV1 is low but not severely decreased. He does not have hypercarbic respiratory failure. He does not have any shortness of breath at rest and is able to do some chores, grocery shop and walk throughout his house on a good day. He does not wish for intubation or BiPAP. I recommend continued aggressive treatment to see how he responds prior to initiating hospice or palliative care. 04/27 He feels better at this time, responded to diuresis. (2) Chronic respiratory failure with hypoxia, on home oxygen therapy: Code(s): J96.11 - Chronic respiratory failure with hypoxia; Z99.81 - Dependence on supplemental oxygen Status: Acute Assessment and Plan: At baseline the patient uses 6 L at rest, 8 L with ambulation and 6 L when he sleeps. Etiology of patient's hypoxemic respiratory in failure include COPD, pulmonary hypertension and PFO 04/26 when I enter the room the patient was on 15 L nasal cannula saturations 97%. I decreased to 10 L nasal cannula saturations were 95%. I decreased him to 8 L nasal cannula and his saturations were 92%. When the patient moved in bed to sit up so that I could listen to his lungs from the back he desatted to 84 and over the next minute he recovered to 91%. 04/27 RV is severely enlarged on echo today. Normal RV function. Moderate TR. BNP is lower, 3720 today compared with [address] on April 25. He does not have high PASP on the echo today. Diuresis is good however with a large RV, we need to be careful not to over-do diuresis. He is 11 L/min, gradually trending down. (3) PFO (patent foramen ovale): Code(s): Q21.12
[2022-04-28] VITALS (30 sets, daily range): BP systolic 107–135; BP diastolic 58–75; PULSE 85–105; RESP 16–22; TEMP 36.4–36.8; O2SAT 84–97
[2022-04-28] MEDS: methylPREDNISolone SOD SUCC 40 MG VIAL 20 MG IV PUSH (02:28)
[2022-04-28] MEDS: IPRATROPIUM BR 0.02% INH SOLN 0.5 MG/2.5 ML VIAL INHALATION ×6 (04:29→23:33)
[2022-04-28] MEDS: ALBUTEROL SULFATE NEB 2.5 MG/3 ML INH INHALATION ×6 (04:30→23:32)
[2022-04-28] MEDS: BENZONATATE 100 MG CAPSULE PO ×3 (08:59→17:37)
[2022-04-28] MEDS: ENOXAPARIN 40 MG/0.4 ML SYRINGE SUB-Q (08:59)
[2022-04-28] MEDS: MULTIVITAMINS THERAPEUTIC TAB (*BKC) 1 TABLET PO (08:59)
[2022-04-28] MEDS: FUROSEMIDE 40 MG TABLET PO (09:00)
[2022-04-28] MEDS: ASPIRIN 81 MG ENTERIC TABLET PO (09:00)
[2022-04-28] MEDS: CHOLECALCIFEROL 1,000 UNITS TABLET 2000 UNITS PO (09:00)
[2022-04-28] MEDS: BICALUTAMIDE (*CHEMO) 50 MG TABLET PO (09:00)
[2022-04-28] MEDS: MEGESTROL ACETATE (*CHEMO) 20 MG TABLET PO (09:00)
[2022-04-28 12:43] LABS: Basophils Percent Auto 0.1 % (0.2-1.2); Hematocrit 47.1 % (42.0-52.0); Hemoglobin 14.7 g/dL (14.0-18.0); Immature Granulocyte Absolute 0.04 K/mm3 (0.00-0.031); Immature Granulocyte Percent A 0.4 % (0-0.5); Mean Corpuscular HGB Conc 31.2 g/dl (32-36); Mean Corpuscular Hemoglobin 36.1 pg (26-34); Mean Corpuscular Volume 115.7 fl (80-100); Mean Platelet Volume 11.4 fl (7.4-10.4); Monocytes Absolute Auto 0.9 K/mm3 (0.1-0.6); Monocytes Percent Auto 8.6 % (2.6-8.5); Neutrophils Absolute Auto 8.7 K/mm3 (1.3-6.7); Neutrophils Percent Auto 87.9 % (45.5-73.1); Nucleated Red Blood Cells Perc 0.2 % (0.0-0.2); Platelet Count Result 141 k/mm3 (150-375); Red Blood Count 4.07 M/mm3 (4.6-6.20); Red Cell Distribution Width 15.3 % (11.5-14.5); White Blood Count 9.9 K/mm3 (4.5-10.0)
[2022-04-28 12:58] LABS: Lactic Acid Reflex 4.6 mmol/L (0.7-2.0)
[2022-04-28 13:04] LABS: Alanine Aminotransferase 37 U/L (6-50); Albumin Level 4.4 g/dL (3.5-5.1); Alkaline Phosphatase 68 U/L (38-126); Anion Gap 7 mmol/L (8-16); Aspartate Amino Transferase 27 U/L (17-59); Blood Urea Nitrogen 26 mg/dL (9-20); Calcium 9.4 mg/dL (8.4-10.2); Carbon Dioxide 30 mmol/L (22-30); Chloride 96 mmol/L (98-107); Estimated CRCL calculation 55 ml/min; Estimated Glomerular Filt Rate > 60; Glucose 145 mg/dL (65-110); Potassium 3.9 mmol/L (3.4-5.0); Sodium 133 mmol/L (137-145)
[2022-04-28 13:29] LABS: Procalcitonin 0.2 ng/mL
[2022-04-28 15:38] LABS: Reflex Lactic Acid Yes or No Add Lactic
[2022-04-28 16:15] LABS: Lactic Acid 4.1 mmol/L (0.7-2.0)
--- NOTE | 2022-04-28 20:59 | PM.IMPN ---
Progress Note: A&P Assessment and Plan (1) Chronic respiratory failure with hypoxia, on home oxygen therapy: Code(s): J96.11 - Chronic respiratory failure with hypoxia; Z99.81 - Dependence on supplemental oxygen Status: Acute Assessment and Plan: Multifactorial, likely secondary to end-stage COPD, pulmonary hypertension and right-sided heart failure with PFO Appreciate pulm + cardio consults Wean oxygen aggressively, up to chair, ambulate when able PT/OT cleared the patient for home without home health care (2) End stage COPD: Code(s): J44.9 - Chronic obstructive pulmonary disease, unspecified Status: Acute Assessment and Plan: Usually on 5-6 L nasal cannula at baseline, requiring 10-15 L high-flow, wean to keep sats closer to 92-94%, difficulty weaning below 10 L high-flow Cont albuterol/ipratroprium sched Q4h, hold trelegy Solumedrol 20 mg q6h Pulmonology consult appreciated (3) History of prostate cancer: Code(s): Z85.46 - Personal history of malignant neoplasm of prostate Status: Acute Assessment and Plan: s/p chemo + radiation, just completed last month, now in remission per patient (4) Chronic kidney disease: Code(s): N18.9 - Chronic kidney disease, unspecified Status: Acute Assessment and Plan: unsure of baseline, creatinine down to 1.2 today from 1.8 at admission (5) Elevated troponin: Code(s): R77.8 - Other specified abnormalities of plasma proteins Status: Acute Assessment and Plan: likely 2/2 CKD, do not suspect acute cardiac etiology (6) Acute on chronic respiratory failure with hypoxemia: Code(s): J96.21 - Acute and chronic respiratory failure with hypoxia Status: Acute Assessment and Plan: worsening COPD with an acute exacerbation management per above (7) Pulmonary hypertension: Code(s): I27.20 - Pulmonary hypertension, unspecified Status: Acute Assessment and Plan: moderate per last echo (8) Cor pulmonale: Code(s): I27.81 - Cor pulmonale (chronic) Status: Acute Assessment and Plan: severe right-sided heart failure noted (9) PFO (patent foramen ovale): Code(s): Q21.12 - Patent foramen ovale Status: Acute Assessment and Plan: small per last echo 02/2022 repeat echo pending R>L shunting risk for hypoxemia noted (10) Lactic acidosis: Code(s): E87.20 - Acidosis, unspecified Status: Acute Assessment and Plan: Suspect this is secondary to hypoxic tissue injury, check ABG Discussed with pulmonology BP is adequate for perfusion, creat is stable and improving, unsure why lactate continues to remain Will hold lasix, would not give IVF at this time due to heart failure and tenuous resp status, consider gentle hydration tomorrow if lactate does not improve Plan DVT prophylaxis with Lovenox GI prophylaxis not indicated Code status DNR/DNI Subjective Date/time seen: 04/28/22 20:59 Interval history: 61-year-old male with end-stage COPD on 6 L at baseline, right sided heart failure, CKD with baseline appearing to be 1.3-1.5, history of prostate cancer now in remission, is presenting with acute on chronic respiratory failure and worsening chest tightness, pulm HTN, PFO, thought to be secondary to COPD exacerbation, admitted with steroids and breathing treatments, no signs of infection. Cardiology was consulted for elevated troponins and abnormal ECG, they do not suspect cardiac etiology. Symptoms thought to be secondary to severe, end-stage COPD with pulmonary hypertension and cor pulmonale. Additional history obtained by reviewing epic with Cardiology printed in paper chart and summarized below: Patient recently admitted to [facility] in February 19-2022 for COPD exacerbation, syncopal episode, NSTEMI/type 2 OK and heart failure exacerbation. He improved somewhat with IV
[2022-04-28] MEDS: ONDANSETRON INJ 4 MG/2 ML VIAL IV PUSH (21:39)
[2022-04-29] VITALS (29 sets, daily range): BP systolic 114–132; BP diastolic 70–82; PULSE 75–107; RESP 16–22; TEMP 36.2–36.9; O2SAT 90–95
[2022-04-29 04:31] LABS: Basophils Percent Auto 0.2 % (0.2-1.2); Eosinophils Percent Auto 0.3 % (0-4.4); Hemoglobin 13.9 g/dL (14.0-18.0); Immature Granulocyte Absolute 0.04 K/mm3 (0.00-0.031); Immature Granulocyte Percent A 0.6 % (0-0.5); Lymphocytes Absolute Auto 0.75 K/mm3 (0.9-3.2); Lymphocytes Percent Auto 12.1 % (18.3-44.2); Mean Corpuscular HGB Conc 32.3 g/dl (32-36); Mean Corpuscular Hemoglobin 36.6 pg (26-34); Mean Corpuscular Volume 113.2 fl (80-100); Mean Platelet Volume 11.4 fl (7.4-10.4); Monocytes Absolute Auto 0.7 K/mm3 (0.1-0.6); Monocytes Percent Auto 10.6 % (2.6-8.5); Neutrophils Absolute Auto 4.7 K/mm3 (1.3-6.7); Neutrophils Percent Auto 76.2 % (45.5-73.1); Platelet Count Result 123 k/mm3 (150-375); Red Cell Distribution Width 14.9 % (11.5-14.5); White Blood Count 6.2 K/mm3 (4.5-10.0)
[2022-04-29] MEDS: ALBUTEROL SULFATE NEB 2.5 MG/3 ML INH INHALATION ×5 (04:53→21:21)
[2022-04-29] MEDS: IPRATROPIUM BR 0.02% INH SOLN 0.5 MG/2.5 ML VIAL INHALATION ×5 (04:53→21:21)
[2022-04-29 05:07] LABS: Lactic Acid Reflex 1.5 mmol/L (0.7-2.0)
[2022-04-29 05:08] LABS: Alanine Aminotransferase 23 U/L (6-50); Albumin Level 3.5 g/dL (3.5-5.1); Alkaline Phosphatase 58 U/L (38-126); Anion Gap 4 mmol/L (8-16); Aspartate Amino Transferase 23 U/L (17-59); Bilirubin,Total 0.9 mg/dL (0.2-1.3); Blood Urea Nitrogen 25 mg/dL (9-20); Calcium 8.9 mg/dL (8.4-10.2); Carbon Dioxide 32 mmol/L (22-30); Chloride 97 mmol/L (98-107); Estimated CRCL calculation 51 ml/min; Estimated Glomerular Filt Rate 56; Glucose 94 mg/dL (65-110); Potassium 3.4 mmol/L (3.4-5.0); Sodium 133 mmol/L (137-145)
[2022-04-29 05:20] LABS: Alveolar/Arterial O2 Gradient 375.3 mmHg; Base Excess ABG 7.3 mEq/l (+/-2.0); Fractional Inspired Oxygen 70 %; HCO3 ABG 31.4 mEq/l (22.0-26.0); Oxygen Content ABG 19.7 %vol (16.0-22.0); Oxygen Saturation ABG 96.4 % (95.0-100.0); Oxyhemoglobin 94.5 % THb (90.0-100.0); PCO2 ABG 42.3 mmHg (35.0-45.0); PO2 ABG 78.3 mmHg (80.0-100.0); PO2 FiO2 Ratio Arterial Blood 1.12 %; Total Hemoglobin 14.8 g/dL (12.0-18.0); pH ABG 7.489 (7.350-7.450)
[2022-04-29 05:21] LABS: Device HIGH FLOW NASAL CANN; Modified Allen's Test Pass; Site Drawn RIGHT RADIAL
[2022-04-29 05:24] LABS: Anisocytosis 1+ (NORMAL); Hypochromasia 1+ (NORMAL); Macrocytosis 1+ (NORMAL); Platelet Estimate Decreased (Adequate)
[2022-04-29 05:25] LABS: Schistocytes None Seen (NORMAL)
[2022-04-29] MEDS: methylPREDNISolone SOD SUCC 40 MG VIAL 20 MG IV PUSH ×5 (05:43→23:26)
[2022-04-29] MEDS: ASPIRIN 81 MG ENTERIC TABLET PO (08:54)
[2022-04-29] MEDS: CHOLECALCIFEROL 1,000 UNITS TABLET 2000 UNITS PO (08:54)
[2022-04-29] MEDS: ENOXAPARIN 40 MG/0.4 ML SYRINGE SUB-Q (08:54)
[2022-04-29] MEDS: MEGESTROL ACETATE (*CHEMO) 20 MG TABLET PO (08:54)
[2022-04-29] MEDS: MULTIVITAMINS THERAPEUTIC TAB (*BKC) 1 TABLET PO (08:55)
[2022-04-29] MEDS: BICALUTAMIDE (*CHEMO) 50 MG TABLET PO (08:55)
[2022-04-29] MEDS: BENZONATATE 100 MG CAPSULE PO ×3 (08:57→18:14)
--- NOTE | 2022-04-29 16:44 | PM.IMPN ---
Progress Note: A&P Assessment and Plan (1) Acute on chronic respiratory failure with hypoxemia: Code(s): J96.21 - Acute and chronic respiratory failure with hypoxia Status: Acute Assessment and Plan: Multifactorial, likely secondary to end-stage COPD, pulmonary hypertension and right-sided heart failure with PFO Appreciate pulm + cardio consults Wean oxygen aggressively, up to chair, ambulate when able PT/OT cleared the patient for home without home health care (2) End stage COPD: Code(s): J44.9 - Chronic obstructive pulmonary disease, unspecified Status: Acute Assessment and Plan: Usually on 5-6 L nasal cannula at baseline, requiring 12 L high-flow, wean to keep sats closer to 92-94%, difficulty weaning below 10 L high-flow Cont albuterol/ipratroprium sched Q4h, hold trelegy Continue steroids. Pulmonology following and appreciate their input (3) History of prostate cancer: Code(s): Z85.46 - Personal history of malignant neoplasm of prostate Status: Acute Assessment and Plan: s/p chemo + radiation, just completed last month, now in remission per patient (4) Chronic kidney disease: Code(s): N18.9 - Chronic kidney disease, unspecified Status: Acute Assessment and Plan: unsure of baseline, creatinine down to 1.3 today from 1.8 at admission (5) Elevated troponin: Code(s): R77.8 - Other specified abnormalities of plasma proteins Status: Acute Assessment and Plan: likely 2/2 CKD, do not suspect acute cardiac etiology (6) Pulmonary hypertension: Code(s): I27.20 - Pulmonary hypertension, unspecified Status: Acute Assessment and Plan: moderate per last echo (7) Cor pulmonale: Code(s): I27.81 - Cor pulmonale (chronic) Status: Acute Assessment and Plan: severe right-sided heart failure noted (8) PFO (patent foramen ovale): Code(s): Q21.12 - Patent foramen ovale Status: Acute Assessment and Plan: Small R>L shunting noted by Echo. (9) Lactic acidosis: Code(s): E87.20 - Acidosis, unspecified Status: Acute Assessment and Plan: Suspect this is secondary to hypoxic tissue injury. Albuterol also can cause lactic acid elevation. BP is adequate for perfusion, creat is stable and improving, unsure why lactate continues to remain Will hold lasix, would not give IVF at this time due to heart failure and tenuous resp status, consider gentle hydration tomorrow if lactate does not improve Plan DVT prophylaxis with Lovenox GI prophylaxis not indicated Code status DNR/DNI Subjective Date/time seen: 04/29/22 16:44 Interval history: 61yo male with end-stage COPD on 6 L at baseline, right sided heart failure, CKD with baseline appearing to be 1.3-1.5, history of prostate cancer now in remission who presents with acute on chronic respiratory failure Assuming care. Chart reviewed. Shortness of breath better. Currently on 12 L. States he uses 6 L at home at rest and 7-8 L with activity. He was up yesterday with therapy and his dyspnea on exertion was minimal. He does have a dry cough. No chest pain. He did have some fleeting amount of squeezing type chest pain yesterday that lasted a few seconds. Does complain of food sticking sensation mid chest relieved with drnking liquids. He has had this symptoms for over a year. Exam Narrative: AF 98.2 117/74 85 16 90% 12L Gen - NARD Chest - distant BS. nml RR CV - RRR S1/S2. Abd - Soft, NT/ND, Positive BS Ext - No pedal edema Psych - Nml mood and affect Skin - Warm and dry Objective Data Vital Signs Vital Signs: Vital Signs - 24 hr 04/28/22 17:06 04/28/22 17:14 04/28/22 18:00 Temperature Pulse Rate 90 97 95 Respiratory Rate 18 18 Blood Pressure Pulse Oximetry Oxygen Delivery Oxygen Flow Rate 04/28/22 20:00 04/28/22 20:48 04/28/22 20:00 Temper
--- NOTE | 2022-04-29 18:02 | PM.PNPUL ---
Progress Note: A&P Assessment and Plan (1) COPD exacerbation: Code(s): J44.1 - Chronic obstructive pulmonary disease with (acute) exacerbation Status: Acute Assessment and Plan: Patient with a 38 pack year tobacco history, quit in December of 2021, pre bronchodilator FEV1 of 2.17 L, FEV1: FVC ratio of 62%, severe apical predominant panlobular emphysema on his CT scan of the chest, hypoxemic respiratory failure requiring 6 L at rest and 8 L with ambulation and 6 L at sleep, no evidence of acute or chronic hypercarbic respiratory failure with a blood gas of 7.45/37/81 on 12 L nasal cannula, 1 hospitalization for COPD exacerbation in February 2022, dyspnea on exertion at 1/4 block, pulmonary hypertension with an estimated RVSP of 50-60 and a PFO. Currently the patient has worsening shortness of breath, worsening hypoxemia, and a dry cough with no phlegm production. I will treat him for COPD exacerbation. There is no evidence of acute or chronic hypercarbic respiratory failure 04/26 The patient tells me that he is breathing normal when he sits but when he does any activity he is short of breath. He denies fever, chills, rigors. He has a dry cough with no phlegm production. Overall he states he is 10% better than when he presented. his white blood cell count is 6.4, his creatinine is improved from 1.8 2 value of 1.5, serum bicarb is 23. his weight is unchanged at 75 kg, his ins and outs demonstrate he is 2.2 L positive. Plan: Will change his Solu-Medrol to 20 mg IV q.6 hours, I will increase his ipratropium nebulizers at 0.5 mg from q.6 hours to q.4 hours. Tessalon Perles 100 mg p.o. t.i.d. At this time he has no phlegm production and no evidence of pneumonia on his CT angiogram of the chest and I do not see need for antibiotics. Patient's FEV1 is 2.17 L and I do not have any normal reference is or the date of this study. His FEV1: FVC ratio 62%. If this is a recent study, the FEV1 is low but not severely decreased. He does not have hypercarbic respiratory failure. He does not have any shortness of breath at rest and is able to do some chores, grocery shop and walk throughout his house on a good day. He does not wish for intubation or BiPAP. I recommend continued aggressive treatment to see how he responds prior to initiating hospice or palliative care. 04/27 He feels better at this time, responded to diuresis. (2) Chronic respiratory failure with hypoxia, on home oxygen therapy: Code(s): J96.11 - Chronic respiratory failure with hypoxia; Z99.81 - Dependence on supplemental oxygen Status: Acute Assessment and Plan: At baseline the patient uses 6 L at rest, 8 L with ambulation and 6 L when he sleeps. Etiology of patient's hypoxemic respiratory in failure include COPD, pulmonary hypertension and PFO 04/26 when I enter the room the patient was on 15 L nasal cannula saturations 97%. I decreased to 10 L nasal cannula saturations were 95%. I decreased him to 8 L nasal cannula and his saturations were 92%. When the patient moved in bed to sit up so that I could listen to his lungs from the back he desatted to 84 and over the next minute he recovered to 91%. 04/27 RV is severely enlarged on echo today. Normal RV function. Moderate TR. BNP is lower, 3720 today compared with 57588 on April 25. He does not have high PASP on the echo today. Diuresis is good however with a large RV, we need to be careful not to over-do diuresis. He is 11 L/min, gradually trending down. (3) PFO (patent foramen ovale): Code(s): Q21.12 - Patent foramen ovale Status: Acute Assessment and Plan: echo report from [facility] : 02/20/2022 Echo showed LVEF 60-65%,, no left ventricular hypertrophy, left ventricular diastolic function is normal, RV size is moderately to s
[2022-04-29] MEDS: POTASSIUM CHLORIDE 20 MEQ TABLET PO (18:14)
[2022-04-29] MEDS: polyethylene glycoL 3350 17 GM POWD.PACK PO (18:15)
[2022-04-29] MEDS: ONDANSETRON INJ 4 MG/2 ML VIAL IV PUSH (19:28)
[2022-04-29] MEDS: PROCHLORPERAZINE EDISYLATE 10 MG/2 ML VIAL IV PUSH (21:30)
[2022-04-30] VITALS (25 sets, daily range): BP systolic 101–135; BP diastolic 61–74; PULSE 82–110; RESP 14–20; TEMP 36.4–37; O2SAT 89–100
[2022-04-30] MEDS: IPRATROPIUM BR 0.02% INH SOLN 0.5 MG/2.5 ML VIAL INHALATION ×5 (00:20→20:21)
[2022-04-30] MEDS: ALBUTEROL SULFATE NEB 2.5 MG/3 ML INH INHALATION ×5 (00:20→20:21)
[2022-04-30 04:59] LABS: Basophils Percent Auto 0.1 % (0.2-1.2); Hematocrit 44.7 % (42.0-52.0); Hemoglobin 14.6 g/dL (14.0-18.0); Immature Granulocyte Absolute 0.04 K/mm3 (0.00-0.031); Immature Granulocyte Percent A 0.4 % (0-0.5); Lymphocytes Absolute Auto 0.24 K/mm3 (0.9-3.2); Lymphocytes Percent Auto 2.6 % (18.3-44.2); Mean Corpuscular HGB Conc 32.7 g/dl (32-36); Mean Corpuscular Hemoglobin 35.8 pg (26-34); Mean Corpuscular Volume 109.6 fl (80-100); Monocytes Absolute Auto 0.6 K/mm3 (0.1-0.6); Neutrophils Absolute Auto 8.5 K/mm3 (1.3-6.7); Neutrophils Percent Auto 90.9 % (45.5-73.1); Platelet Count Result 136 k/mm3 (150-375); Red Blood Count 4.08 M/mm3 (4.6-6.20); Red Cell Distribution Width 14.4 % (11.5-14.5); White Blood Count 9.4 K/mm3 (4.5-10.0)
[2022-04-30 05:16] LABS: Alanine Aminotransferase 27 U/L (6-50); Albumin Level 3.7 g/dL (3.5-5.1); Alkaline Phosphatase 64 U/L (38-126); Anion Gap 5 mmol/L (8-16); Aspartate Amino Transferase 26 U/L (17-59); Bilirubin,Total 1.1 mg/dL (0.2-1.3); Blood Urea Nitrogen 32 mg/dL (9-20); Calcium 8.9 mg/dL (8.4-10.2); Carbon Dioxide 29 mmol/L (22-30); Chloride 97 mmol/L (98-107); Estimated CRCL calculation 55 ml/min; Estimated Glomerular Filt Rate > 60; Glucose 150 mg/dL (65-110); Magnesium 2.3 mg/dL (1.6-2.3); Potassium 4.5 mmol/L (3.4-5.0); Sodium 131 mmol/L (137-145)
[2022-04-30 05:24] LABS: Macrocytosis 1+ (NORMAL); Schistocytes None Seen (NORMAL)
[2022-04-30] MEDS: PROCHLORPERAZINE EDISYLATE 10 MG/2 ML VIAL IV PUSH (05:49)
[2022-04-30] MEDS: methylPREDNISolone SOD SUCC 40 MG VIAL 20 MG IV PUSH ×3 (05:49→20:08)
[2022-04-30] MEDS: polyethylene glycoL 3350 17 GM POWD.PACK PO (08:34)
[2022-04-30] MEDS: CHOLECALCIFEROL 1,000 UNITS TABLET 2000 UNITS PO (08:34)
[2022-04-30] MEDS: BICALUTAMIDE (*CHEMO) 50 MG TABLET PO (08:34)
[2022-04-30] MEDS: ASPIRIN 81 MG ENTERIC TABLET PO (08:34)
[2022-04-30] MEDS: MEGESTROL ACETATE (*CHEMO) 20 MG TABLET PO (08:34)
[2022-04-30] MEDS: MULTIVITAMINS THERAPEUTIC TAB (*BKC) 1 TABLET PO (08:34)
[2022-04-30] MEDS: ENOXAPARIN 40 MG/0.4 ML SYRINGE SUB-Q (08:35)
[2022-04-30] MEDS: BENZONATATE 100 MG CAPSULE PO ×3 (08:36→17:01)
--- NOTE | 2022-04-30 16:13 | PM.IMPN ---
Progress Note: A&P Assessment and Plan (1) Acute on chronic respiratory failure with hypoxemia: Code(s): J96.21 - Acute and chronic respiratory failure with hypoxia Status: Acute Assessment and Plan: Multifactorial, likely secondary to end-stage COPD, pulmonary hypertension and right-sided heart failure with PFO Appreciate pulm + cardio consults Wean oxygen as toelrated. Increase activity level as he tolerates PT/OT cleared the patient for home without home health care (2) End stage COPD: Code(s): J44.9 - Chronic obstructive pulmonary disease, unspecified Status: Acute Assessment and Plan: Usually on 6 L at rest and 7-8L with activity. Close to baseline now at 8L Wean to keep SpO2>90% Cont albuterol/ipratroprium scheduled Q4h, hold trelegy Continue steroids. Pulmonology following and appreciate their input (3) History of prostate cancer: Code(s): Z85.46 - Personal history of malignant neoplasm of prostate Status: Acute Assessment and Plan: s/p chemo + radiation, just completed last month, now in remission per patient (4) Chronic kidney disease: Code(s): N18.9 - Chronic kidney disease, unspecified Status: Acute Assessment and Plan: unsure of baseline, creatinine down to 1.2 today from 1.8 at admission (5) Elevated troponin: Code(s): R77.8 - Other specified abnormalities of plasma proteins Status: Acute Assessment and Plan: Troponin up to 0.99. EKG showing NSR with rt BBB and left posterior fascicular block with ST-T wave changes in anterolateral leads consider ischemia. Echo showing EF 65/70%, septal wall motion abnormality related tot he BBB, Grade i diastolic dysfunction, severely enlarged RV with evidence of RV volume overload but normal RV systolic function and small R->L shunt. Elevated Trop likely 2/2 CKD and respiratory failure. Doubt acute cardiac etiology. Follow. Resume home lasix. (6) Pulmonary hypertension: Code(s): I27.20 - Pulmonary hypertension, unspecified Status: Acute Assessment and Plan: moderate per last echo but not mentioned on Echo here. (7) Cor pulmonale: Code(s): I27.81 - Cor pulmonale (chronic) Status: Acute Assessment and Plan: Echo as above. (8) PFO (patent foramen ovale): Code(s): Q21.12 - Patent foramen ovale Status: Acute Assessment and Plan: Small R -> L shunting noted by Echo. (9) Lactic acidosis: Code(s): E87.20 - Acidosis, unspecified Status: Acute Assessment and Plan: Suspect this is secondary to hypoxic tissue injury. Albuterol also can cause lactic acid elevation. BP is adequate for perfusion, creat is stable and improving. Lactic level improving. Will hold lasix, would not give IVF at this time due to heart failure and tenuous resp status, consider gentle hydration tomorrow if lactate does not improve Plan N/V - complained of food sticking yesterday and now chronic n/v. Unclear if he has esophageal stricture or if this is cyclic vomiting. No EGD listed here ut has had them in the past, Check UGI. DVT prophylaxis with Lovenox GI prophylaxis not indicated Code status DNR/DNI Subjective Date/time seen: 04/30/22 16:13 Interval history: 61yo male with end-stage COPD on 6 L at baseline, right sided heart failure, CKD with baseline appearing to be 1.3-1.5, history of prostate cancer now in remission who presents with acute on chronic respiratory failure Still feels shortness of breath but overall better. Currently on 8L. He uses 6 L at home at rest and 7-8 L with activity. He was having nausea and vomiting over night which is not uncommon. He has had these symptoms for years. He has had EGDs in the past. No ulcers or other abnormalities. Exam Narrative: AF 97.7 124/67 85 18 93% 8L Gen - NARD Chest - distant but clear BS. nml RR CV - RRR S1/S2. Tele showing no signif
--- NOTE | 2022-04-30 17:38 | PM.PNPUL ---
Subjective Date/time seen: 04/30/22 17:38 Objective Data Vital Signs Vital Signs: Vital Signs - 24 hr 04/29/22 18:30 04/29/22 18:00 04/29/22 20:00 Temperature Pulse Rate 104 H 104 H Respiratory Rate 16 Blood Pressure Pulse Oximetry 93 93 Oxygen Delivery High Flow Nasal Cannula High Flow Nasal Cannula Oxygen Flow Rate 10 12 04/29/22 20:00 04/29/22 21:21 04/29/22 21:24 Temperature 36.7 C Pulse Rate 95 104 H 102 H Respiratory Rate 20 20 Blood Pressure 132/82 Pulse Oximetry 92 92 Oxygen Delivery High Flow Nasal Cannula Oxygen Flow Rate 15 04/29/22 21:32 04/29/22 20:00 04/29/22 22:00 Temperature Pulse Rate 107 H 103 H 99 Respiratory Rate 20 Blood Pressure Pulse Oximetry Oxygen Delivery Oxygen Flow Rate 04/29/22 22:15 04/30/22 00:00 04/30/22 00:00 Temperature 36.4 C L Pulse Rate 98 98 Respiratory Rate 20 20 Blood Pressure 132/72 Pulse Oximetry 95 93 93 Oxygen Delivery High Flow Nasal Cannula High Flow Nasal Cannula Oxygen Flow Rate 8 10 04/30/22 00:20 04/30/22 00:20 04/30/22 00:30 Temperature Pulse Rate 96 96 98 Respiratory Rate 20 20 Blood Pressure Pulse Oximetry 94 Oxygen Delivery High Flow Nasal Cannula Oxygen Flow Rate 8 04/30/22 00:00 04/30/22 02:00 04/30/22 04:00 Temperature Pulse Rate 92 90 94 Respiratory Rate Blood Pressure Pulse Oximetry Oxygen Delivery Oxygen Flow Rate 04/30/22 04:00 04/30/22 06:00 04/30/22 04:00 Temperature 36.4 C L Pulse Rate 94 82 110 H Respiratory Rate 20 20 Blood Pressure 135/72 Pulse Oximetry 94 90 Oxygen Delivery High Flow Nasal Cannula Oxygen Flow Rate 8 04/30/22 07:15 04/30/22 07:15 04/30/22 07:25 Temperature Pulse Rate 87 87 90 Respiratory Rate 18 18 18 Blood Pressure Pulse Oximetry 94 Oxygen Delivery High Flow Nasal Cannula Oxygen Flow Rate 8 04/30/22 11:05 04/30/22 11:15 04/30/22 12:00 Temperature 36.5 C Pulse Rate 85 87 96 Respiratory Rate 18 18 20 Blood Pressure 124/67 Pulse Oximetry 93 Oxygen Delivery Oxygen Flow Rate 04/30/22 08:30 04/30/22 08:30 04/30/22 10:00 Temperature Pulse Rate 92 92 89 Respiratory Rate 20 Blood Pressure Pulse Oximetry 92 Oxygen Delivery High Flow Nasal Cannula Oxygen Flow Rate 10 04/30/22 12:30 04/30/22 12:30 04/30/22 14:00 Temperature Pulse Rate 90 95 92 Respiratory Rate Blood Pressure Pulse Oximetry 94 Oxygen Delivery High Flow Nasal Cannula Oxygen Flow Rate 10 04/30/22 14:00 04/30/22 15:05 04/30/22 15:15 Temperature Pulse Rate 92 83 85 Respiratory Rate 20 18 18 Blood Pressure Pulse Oximetry 93 Oxygen Delivery High Flow Nasal Cannula Oxygen Flow Rate 8 04/30/22 16:00 Temperature 37.0 C Pulse Rate 98 Respiratory Rate 20 Blood Pressure 101/64 Pulse Oximetry 92 Oxygen Delivery Oxygen Flow Rate Intake/Output Intake/Output: Intake & Output 04/27/22 04/28/22 04/29/22 04/30/22 23:59 23:59 23:59 23:59 Intake Total 1720 1500 1510 720 Output Total 2400 2450 2700 1300 Balance -680 -950 -1190 -580 Meds/Results Medications: Active Medications Generic Name Dose Route Start Last Admin Trade Name Freq PRN Reason Stop Dose Admin Acetaminophen 650 mg 04/30/22 16:31 Acetaminophen 325 Mg Tablet PO Q6H PRN Mild Pain (1-3) or Fever Albuterol 2.5 mg 04/26/22 20:00 04/30/22 15:05 Albuterol Sulfate Neb 2.5 Mg/3 Ml Inh INHALATION 2.5 mg Q4HRT LEAH Administration Aspirin 81 mg 04/26/22 09:00 04/30/22 08:34 Aspirin 81 Mg Enteric Tablet PO 81 mg DAILY LEAH Administration Benzonatate 100 mg 04/26/22 14:10 04/30/22 17:01 Benzonatate 100 Mg Capsule PO 100 mg TID LEAH Administration Bicalutamide 50 mg 04/26/22 09:00 04/30/22 08:34 Bicalutamide (*Chemo) 50 Mg Tablet PO 50 mg DAILY LEAH Administration Enoxaparin Sodium 40 mg 04/26/22 12:
[2022-04-30] MEDS: PANTOPRAZOLE 40 MG TABLET PO (20:03)
[2022-05-01] VITALS (29 sets, daily range): BP systolic 107–126; BP diastolic 68–75; PULSE 86–133; RESP 18–20; TEMP 36.4–36.9; O2SAT 85–100
[2022-05-01] MEDS: IPRATROPIUM BR 0.02% INH SOLN 0.5 MG/2.5 ML VIAL INHALATION ×6 (00:50→15:27)
[2022-05-01] MEDS: ALBUTEROL SULFATE NEB 2.5 MG/3 ML INH INHALATION ×7 (00:50→20:31)
[2022-05-01] MEDS: methylPREDNISolone SOD SUCC 40 MG VIAL 20 MG IV PUSH ×2 (04:42→12:48)
[2022-05-01 05:13] LABS: Basophils Percent Auto 0.2 % (0.2-1.2); Hemoglobin 14.8 g/dL (14.0-18.0); Immature Granulocyte Absolute 0.04 K/mm3 (0.00-0.031); Immature Granulocyte Percent A 0.6 % (0-0.5); Lymphocytes Absolute Auto 0.25 K/mm3 (0.9-3.2); Lymphocytes Percent Auto 3.9 % (18.3-44.2); Mean Corpuscular HGB Conc 32.9 g/dl (32-36); Mean Corpuscular Hemoglobin 36.7 pg (26-34); Mean Corpuscular Volume 111.7 fl (80-100); Mean Platelet Volume 11.3 fl (7.4-10.4); Monocytes Absolute Auto 0.3 K/mm3 (0.1-0.6); Monocytes Percent Auto 4.8 % (2.6-8.5); Neutrophils Absolute Auto 5.8 K/mm3 (1.3-6.7); Neutrophils Percent Auto 90.5 % (45.5-73.1); Platelet Count Result 142 k/mm3 (150-375); Red Blood Count 4.03 M/mm3 (4.6-6.20); Red Cell Distribution Width 13.7 % (11.5-14.5); White Blood Count 6.4 K/mm3 (4.5-10.0)
[2022-05-01 05:24] LABS: Alanine Aminotransferase 30 U/L (6-50); Albumin Level 3.6 g/dL (3.5-5.1); Alkaline Phosphatase 60 U/L (38-126); Anion Gap 4 mmol/L (8-16); Aspartate Amino Transferase 25 U/L (17-59); Bilirubin,Total 1.3 mg/dL (0.2-1.3); Blood Urea Nitrogen 31 mg/dL (9-20); Calcium 8.6 mg/dL (8.4-10.2); Carbon Dioxide 28 mmol/L (22-30); Chloride 100 mmol/L (98-107); Estimated CRCL calculation 59 ml/min; Estimated Glomerular Filt Rate > 60; Glucose 152 mg/dL (65-110); Potassium 4.5 mmol/L (3.4-5.0); Sodium 132 mmol/L (137-145)
[2022-05-01] MEDS: CHOLECALCIFEROL 1,000 UNITS TABLET 2000 UNITS PO (08:39)
[2022-05-01] MEDS: FUROSEMIDE 40 MG TABLET PO (08:39)
[2022-05-01] MEDS: BENZONATATE 100 MG CAPSULE PO ×3 (08:39→18:16)
[2022-05-01] MEDS: MULTIVITAMINS THERAPEUTIC TAB (*BKC) 1 TABLET PO (08:39)
[2022-05-01] MEDS: PANTOPRAZOLE 40 MG TABLET PO ×2 (08:39→20:08)
[2022-05-01] MEDS: MEGESTROL ACETATE (*CHEMO) 20 MG TABLET PO (08:39)
[2022-05-01] MEDS: BICALUTAMIDE (*CHEMO) 50 MG TABLET PO (08:39)
[2022-05-01] MEDS: polyethylene glycoL 3350 17 GM POWD.PACK PO (08:39)
[2022-05-01] MEDS: ASPIRIN 81 MG ENTERIC TABLET PO (08:39)
[2022-05-01] MEDS: ENOXAPARIN 40 MG/0.4 ML SYRINGE SUB-Q (08:39)
[2022-05-01] MEDS: PROCHLORPERAZINE EDISYLATE 10 MG/2 ML VIAL IV PUSH (08:40)
--- NOTE | 2022-05-01 12:08 | HOMEO2EVAL ---
Evaluation was performed at [facility] Home Oxygen Evaluation RC: Home Oxygen (O2) Evaluation Start: 05/01/22 11:36 Freq: ONCE Status: Active Protocol: RPE Activity Type Activity Date Activity User E-sign Co-sign Detail Recorded Client Recorded Date Recorded By Document 05/01/22 11:30 CECILIA [email or web address] 05/01/22 12:08 CECILIA Document 05/01/22 11:31 CECILIA [email or web address] 05/01/22 12:08 CECILIA Document 05/01/22 11:32 CECILIA [email or web address] 05/01/22 12:08 CECILIA Document 05/01/22 11:33 CECILIA [email or web address] 05/01/22 12:08 CECILIA Document 05/01/22 11:34 CECILIA [email or web address] 05/01/22 12:08 CECILIA Document 05/01/22 11:35 CECILIA [email or web address] 05/01/22 12:08 CECILIA Document 05/01/22 11:45 CECILIA [email or web address] 05/01/22 12:08 CECILIA 05/01/22 05/01/22 05/01/22 11:30 11:31 11:32 Home O2 Evaluation [Oxygen] -Test Phase Resting Resting Exercise -Oxygen Delivery High Flow Nasal High Flow Nasal High Flow Nasal Cannula Cannula Cannula -Oxygen Flow Rate (L/min) 7 8 8 [Pulse Oximetry] -Pulse Oximetry (90-100 %) 87 L 90 85 L [Pulse Rate] -Pulse Rate (60-100 beats/min) 112 H 133 H [Comments] -Home Oxygen Evaluation Comments [Charges] -Treatment Charges O2 Evaluation - Inpatient 05/01/22 05/01/22 05/01/22 11:33 11:34 11:35 Home O2 Evaluation [Oxygen] -Test Phase Exercise Exercise Exercise -Oxygen Delivery High Flow Nasal High Flow Nasal High Flow Nasal Cannula Cannula Cannula -Oxygen Flow Rate (L/min) 10 11 12 [Pulse Oximetry] -Pulse Oximetry (90-100 %) 87 L 88 L 89 L [Pulse Rate] -Pulse Rate (60-100 beats/min) [Comments] -Home Oxygen Evaluation Comments Pt requires 8 L high flow home O2 at rest and 12 L high flow with exertion [Charges] -Treatment Charges 05/01/22 11:45 Home O2 Evaluation [Oxygen] -Test Phase Resting -Oxygen Delivery High Flow Nasal Cannula -Oxygen Flow Rate (L/min) 8 [Pulse Oximetry] -Pulse Oximetry (90-100 %) 90 [Pulse Rate] -Pulse Rate (60-100 beats/min) 112 H [Comments] -Home Oxygen Evaluation Comments [Charges] -Treatment Charges
--- NOTE | 2022-05-01 12:12 | PCRCNOTE ---
Home O2 eval done, pt has [facility] for home O2. Increased needs to 12 l with exertion. Faxed paperwork to DME, They will ensure pt has all home O2 equipment. Family will bring in tank upon D/C for transport home.
--- NOTE | 2022-05-01 16:56 | PM.IMPN ---
Progress Note: A&P Assessment and Plan (1) Acute on chronic respiratory failure with hypoxemia: Code(s): J96.21 - Acute and chronic respiratory failure with hypoxia Status: Acute Assessment and Plan: Multifactorial, likely secondary to end-stage COPD, pulmonary hypertension and right-sided heart failure with PFO Appreciate pulm + cardiology consults Wean oxygen as tolerated. Increase activity level as he tolerates PT/OT cleared the patient for home without home health longterm O2 evaluation today. Home tomorrow (2) End stage COPD: Code(s): J44.9 - Chronic obstructive pulmonary disease, unspecified Status: Acute Assessment and Plan: Usually on 6 L at rest and 7-8L with activity. Close to baseline now at 8L Wean to keep SpO2>90% Cont albuterol/ipratroprium but decrease frequency. Resume trelegy Stop steroids. . Pulmonology following and appreciate their input (3) History of prostate cancer: Code(s): Z85.46 - Personal history of malignant neoplasm of prostate Status: Acute Assessment and Plan: s/p chemo + radiation, just completed last month, now in remission per patient (4) Chronic kidney disease: Code(s): N18.9 - Chronic kidney disease, unspecified Status: Acute Assessment and Plan: Probably with LOTUS. Cr 1.8 on admission but down to 1.1 today. Follow (5) Elevated troponin: Code(s): R77.8 - Other specified abnormalities of plasma proteins Status: Acute Assessment and Plan: Troponin up to 0.99. EKG showing NSR with rt BBB and left posterior fascicular block with ST-T wave changes in anterolateral leads consider ischemia. Echo showing EF 65/70%, septal wall motion abnormality related tot he BBB, Grade I diastolic dysfunction, severely enlarged RV with evidence of RV volume overload but normal RV systolic function and small R->L shunt. Elevated Trop likely 2/2 CKD and respiratory failure. Doubt acute cardiac etiology. Follow. (6) Pulmonary hypertension: Code(s): I27.20 - Pulmonary hypertension, unspecified Status: Acute Assessment and Plan: moderate per last echo but not mentioned on Echo here. (7) Cor pulmonale: Code(s): I27.81 - Cor pulmonale (chronic) Status: Acute Assessment and Plan: Echo as above. (8) PFO (patent foramen ovale): Code(s): Q21.12 - Patent foramen ovale Status: Acute Assessment and Plan: Small R -> L shunting noted by Echo. (9) Lactic acidosis: Code(s): E87.20 - Acidosis, unspecified Status: Acute Assessment and Plan: Suspect this is secondary to hypoxic tissue injury. Albuterol also can cause lactic acid elevation. BP is adequate for perfusion, creat is stable and improving. Lactic level normal Plan N/V - complained of food sticking yesterday and now chronic n/v. Unclear if he has esophageal stricture or if this is cyclic vomiting. No EGD listed here but has had them in the past. UGI ordered. DVT prophylaxis with Lovenox GI prophylaxis not indicated Code status DNR/DNI Subjective Date/time seen: 05/01/22 16:56 Interval history: 61yo male with end-stage COPD on 6 L at baseline, right sided heart failure, CKD with baseline appearing to be 1.3-1.5, history of prostate cancer now in remission who presents with acute on chronic respiratory failure No SOB and only slight cough now. No CP. He feels ready for discharge. Exam Narrative: AF 97.9 107/71 108 20 91% 8L Gen - NARD Chest - distant but clear BS. nml RR CV - RRR S1/S2. Tele showing mild sinus tachycardia Abd - Soft, NT/ND, Positive BS Ext - No pedal edema Psych - Nml mood and affect Skin - Warm and dry Objective Data Vital Signs Vital Signs: Vital Signs - 24 hr 04/30/22 17:15 04/30/22 18:00 04/30/22 20:20 Temperature Pulse Rate 89 95 Respiratory Rate Blood Pressure Pulse Oximetry 89 L 91 Oxygen De
[2022-05-02] VITALS (18 sets, daily range): BP systolic 104–122; BP diastolic 62–78; PULSE 76–105; RESP 16–20; TEMP 36.3–36.6; O2SAT 90–97
[2022-05-02] MEDS: ALBUTEROL SULFATE NEB 2.5 MG/3 ML INH INHALATION ×3 (01:49→20:10)
[2022-05-02] MEDS: MEGESTROL ACETATE (*CHEMO) 20 MG TABLET PO (09:41)
[2022-05-02] MEDS: BICALUTAMIDE (*CHEMO) 50 MG TABLET PO (09:41)
[2022-05-02] MEDS: ENOXAPARIN 40 MG/0.4 ML SYRINGE SUB-Q (09:41)
[2022-05-02] MEDS: FUROSEMIDE 40 MG TABLET PO (09:42)
[2022-05-02] MEDS: CHOLECALCIFEROL 1,000 UNITS TABLET 2000 UNITS PO (09:42)
[2022-05-02] MEDS: ASPIRIN 81 MG ENTERIC TABLET PO (09:42)
[2022-05-02] MEDS: PANTOPRAZOLE 40 MG TABLET PO ×2 (09:42→20:28)
[2022-05-02] MEDS: MULTIVITAMINS THERAPEUTIC TAB (*BKC) 1 TABLET PO (09:42)
[2022-05-02] MEDS: BENZONATATE 100 MG CAPSULE PO ×3 (09:46→17:12)
--- NOTE | 2022-05-02 12:55 | PM.IMPN ---
Progress Note: A&P Assessment and Plan (1) Acute on chronic respiratory failure with hypoxemia: Code(s): J96.21 - Acute and chronic respiratory failure with hypoxia Status: Acute Assessment and Plan: Multifactorial, likely secondary to end-stage COPD, pulmonary hypertension and right-sided heart failure with PFO Appreciate pulm + cardiology consults. CTA chest does show severe emphysema Wean oxygen as tolerated. Increase activity level as he tolerates PT/OT cleared the patient for home without home health intermediate O2 evaluation showing he needs 8L at rest and 12L with activity. His O2 at home can only go to 10L (which gets to SpO2 87%). Spoke with Pulmonary who recommended home with 10L with activity and 8L with rest. Repeat CXR. Check swallow evaluation. (2) End stage COPD: Code(s): J44.9 - Chronic obstructive pulmonary disease, unspecified Status: Acute Assessment and Plan: Usually on 6 L at rest and 7-8L with activity. Close to baseline now at 8L Wean to keep SpO2>90% Cont albuterol and Trelegy Pulmonology following and appreciate their input (3) History of prostate cancer: Code(s): Z85.46 - Personal history of malignant neoplasm of prostate Status: Acute Assessment and Plan: s/p chemo + radiation, just completed last month, now in remission per patient (4) Chronic kidney disease: Code(s): N18.9 - Chronic kidney disease, unspecified Status: Acute Assessment and Plan: Probably with LOTUS. Cr 1.8 on admission but down to 1.1 yesterday. Follow (5) Elevated troponin: Code(s): R77.8 - Other specified abnormalities of plasma proteins Status: Acute Assessment and Plan: Troponin up to 0.99. EKG showing NSR with rt BBB and left posterior fascicular block with ST-T wave changes in anterolateral leads consider ischemia. Echo showing EF 65-70%, septal wall motion abnormality related to the BBB, Grade I diastolic dysfunction, severely enlarged RV with evidence of RV volume overload but normal RV systolic function and small R->L shunt. Elevated Trop likely 2/2 CKD and respiratory failure. Doubt acute cardiac etiology. Follow. (6) Pulmonary hypertension: Code(s): I27.20 - Pulmonary hypertension, unspecified Status: Acute Assessment and Plan: Moderate per last echo but not mentioned on Echo here. (7) Cor pulmonale: Code(s): I27.81 - Cor pulmonale (chronic) Status: Acute Assessment and Plan: Echo as above. (8) PFO (patent foramen ovale): Code(s): Q21.12 - Patent foramen ovale Status: Acute Assessment and Plan: Small R -> L shunting noted by Echo. (9) Lactic acidosis: Code(s): E87.20 - Acidosis, unspecified Status: Acute Assessment and Plan: Suspect this is secondary to hypoxic tissue injury. Albuterol also can cause lactic acid elevation. BP is adequate for perfusion, creat is stable and improving. Lactic level normal Plan N/V - complained of food sticking and chronic n/v. Unclear if he has esophageal stricture or if this is cyclic vomiting. No EGD listed here but has had them in the past. While do speech therapy evaluation and defer UGI at this time. Macrocytosis - could be related to recent chemo treatment. Check B12 DVT prophylaxis with Lovenox GI prophylaxis not indicated Code status DNR/DNI Subjective Date/time seen: 05/02/22 12:55 Interval history: 61yo male with end-stage COPD on 6 L at baseline, right sided heart failure, CKD with baseline appearing to be 1.3-1.5, history of prostate cancer now in remission who presents with acute on chronic respiratory failure No problems overnight. No CP or SOB. Exam Narrative: AF 98.0 107/68 105 18 95% 8L Gen - NARD Chest - distant but clear BS. nml RR CV - RRR S1/S2. Tele showing mild sinus tachycardia Abd - Soft, NT/ND, Positive BS Ext - No pedal edema Psych - Nm
[2022-05-02 14:57] LABS: Folic Acid > 20.0 ng/mL (2.76->20)
[2022-05-03] VITALS (16 sets, daily range): BP systolic 100–144; BP diastolic 65–90; PULSE 56–105; RESP 16–20; TEMP 36.4–36.5; O2SAT 90–100
[2022-05-03] MEDS: ALBUTEROL SULFATE NEB 2.5 MG/3 ML INH INHALATION ×3 (02:33→14:54)
[2022-05-03] MEDS: MEGESTROL ACETATE (*CHEMO) 20 MG TABLET PO (08:57)
[2022-05-03] MEDS: PANTOPRAZOLE 40 MG TABLET PO (08:57)
[2022-05-03] MEDS: CHOLECALCIFEROL 1,000 UNITS TABLET 2000 UNITS PO (08:57)
[2022-05-03] MEDS: ENOXAPARIN 40 MG/0.4 ML SYRINGE SUB-Q (08:57)
[2022-05-03] MEDS: FUROSEMIDE 40 MG TABLET PO (08:57)
[2022-05-03] MEDS: MULTIVITAMINS THERAPEUTIC TAB (*BKC) 1 TABLET PO (08:57)
[2022-05-03] MEDS: ASPIRIN 81 MG ENTERIC TABLET PO (08:58)
[2022-05-03] MEDS: BICALUTAMIDE (*CHEMO) 50 MG TABLET PO (08:58)
[2022-05-03] MEDS: FLUTICASONE/UMECLIDIN/VILANTER 100-62.5-25 MCG ELLIPTA 1 PUFF INHALATION (10:07)
--- NOTE | 2022-05-03 10:52 | PCSTNOTE ---
Patient seen for bedside swallowing evaluation. Sitting in bed with head of bed elevated. Oral peripheral exam results within normal limits. Patient states that he has had the sensation of food and liquid sticking in his throat since he was diagnosed with COPD 2 or 3 years ago. States that he does not cough or choke but the sensation has not resolved. Patient trialed thin liquids (water) by straw and bites of blueberry muffin (solid) by hand. Swallowing ability and function appear to be within normal limits based on bedside swallowing evaluation. However, patient states that he still feels as though something is stuck in his throat. Recommendation: Modified barium swallow study. Thank you for the referral of this patient.
--- NOTE | 2022-05-03 14:53 | PM.DS ---
DS: Admitting Diagnosis Discharge Date 05/03/22 Admitting Diagnosis Shortness of breath DS: Discharge Diagnosis Discharge Diagnosis (1) Acute on chronic respiratory failure with hypoxemia: Code(s): J96.21 - Acute and chronic respiratory failure with hypoxia Status: Acute (2) End stage COPD: Code(s): J44.9 - Chronic obstructive pulmonary disease, unspecified Status: Acute (3) History of prostate cancer: Code(s): Z85.46 - Personal history of malignant neoplasm of prostate Status: Acute (4) Chronic kidney disease: Code(s): N18.9 - Chronic kidney disease, unspecified Status: Acute (5) Elevated troponin: Code(s): R77.8 - Other specified abnormalities of plasma proteins Status: Acute (6) Pulmonary hypertension: Code(s): I27.20 - Pulmonary hypertension, unspecified Status: Acute (7) Cor pulmonale: Code(s): I27.81 - Cor pulmonale (chronic) Status: Acute (8) PFO (patent foramen ovale): Code(s): Q21.12 - Patent foramen ovale Status: Acute (9) Lactic acidosis: Code(s): E87.20 - Acidosis, unspecified Status: Acute DS: Summary Hospital Course Reason for hospitalization: 61yo male with end-stage COPD on 6 L at baseline, right sided heart failure, CKD with baseline appearing to be 1.3-1.5, history of prostate cancer now in remission who presents with acute on chronic respiratory failure. Please see H&P for details Hospital Course: Patient presents with increasing SOB felt to be multifactorial related to end-stage COPD, pulmonary hypertension and right-sided heart failure with PFO. He has a history of prostate cancer s/p chemo + radiation, just completed last month, now in remission per patient. Probably had LOTUS with Cr 1.8 on admission but down to 1.1. Troponin up to 0.99. EKG showing NSR with rt BBB and left posterior fascicular block with ST-T wave changes in anterolateral leads consider ischemia. Echo showing EF 65-70%, septal wall motion abnormality related to the BBB, Grade I diastolic dysfunction, severely enlarged RV with evidence of RV volume overload but normal RV systolic function and small R->L shunt. Elevated Trop likely 2/2 CKD and respiratory failure. Doubt acute cardiac etiology. Speech therapy evaluated the patient. Please see her report for details. Patient was up to 15L O2. CTA chest does show severe emphysema. Usually he is on 6 L at rest and 7-8L with activity. He was treated with bronchodilators and steroids. Able to wean O2 to close to baseline now at 8L at rest but needed 12L with activity. Repeat CXR showed no acute findings but severe emphysema. Appreciate pulmonary + cardiology consults. PT/OT cleared the patient for home without home health care. Patient is aware that he is at end-stage. Discussed hospice as an option. Home today. Status at Discharge Cognitive/behavioral status at discharge: stable Time Spent with Patient Time attestation: Total time spent providing and/or coordinating discharge services: 38 minutes Time spent: Greater than 30 minutes Exam Narrative: AF 97.5 106/90 81 18 90% 8L Gen - NARD Chest - distant but clear BS. nml RR CV - RRR S1/S2 Abd - Soft, NT/ND, Positive BS Ext - No pedal edema Psych - Nml mood and affect Skin - Warm and dry DS: Data Data Completed and Pending Labs on day of discharge: Labs from last 24 hours 05/01/22 04:51 Vitamin B12 420.0 Folate > 20.0 H Discharge Plan Discharge Attending physician on discharge: Richar Larson Consulting providers: Kelton Lee ; Davi Hernandez ; Lillian Sultana Discharging Clinician: Richar Larson Anticipated Discharge Date/Time: 05/03/22 15:05 Patient Disposition: Home, Self-Care Activity: as tolerated Diet: regular Discharge Instructions: Please eat softer foods with thinner texture that are easier to swallow. Forceful swallows and multiple swa
== END 2022-05-03 16:13 | disposition home or self-care (01) | DRG 133 ==
LOC: ANHED 18:48 → ANHIMU 23:14
PROVIDERS: Emergency Medicine; Internal Medicine; Nurse Practitioner; Admitting Provider Student in an Organized Health Care Education/Training Program; Emergency Provider Physician Assistant; PCP Internal Medicine; Visit Provider Internal Medicine
DX: J96.21 Acute and chronic respiratory failure with hypoxia (principal); E87.20 Acidosis, unspecified; I27.20 Pulmonary hypertension, unspecified; N18.9 Chronic kidney disease, unspecified; I27.81 Cor pulmonale (chronic); Q21.12 Patent foramen ovale; I45.10 Unspecified right bundle-branch block; J43.9 Emphysema, unspecified; R11.2 Nausea with vomiting, unspecified; Z20.822 Contact with and (suspected) exposure to COVID-19; Z66 Do not resuscitate; Z85.46 Personal history of malignant neoplasm of prostate; Z99.81 Dependence on supplemental oxygen; Z92.21 Personal history of antineoplastic chemotherapy; Z92.3 Personal history of irradiation; Z87.891 Personal history of nicotine dependence
CPT/HCPCS: 36415; 36600; 71045; 71046; 71275; 76775; 80048; 80053; 82104; 82525; 82607; 82746; 82805; 83605; 83690; 83735; 83880; 84100; 84145; 84443; 84484; 85025; 85027; 85610; 85730; 87040; 87636; 92610; 92611; 93005; 93306; 94618; 94640; 96361; 96365; 96375; 97161; 97165; 99285; A9270; J0131; J0780; J1644; J1650; J2060; J2405; J2920; J2930; J7030; Q9967

== ENCOUNTER 2022-05-18 15:27 | Observation (INO) | payer OTHER, SELFPAY ==
[2022-05-18] VITALS (9 sets, daily range): BP systolic 112–125; BP diastolic 59–76; PULSE 78–105; RESP 14–22; TEMP 36.6–36.8; O2SAT 92–98; BMI 24.7; BMI 33.8
--- NOTE | ~2022-05-18 | XR_ITS ---
EXAMINATION: XR chest 2V DATE: 05/18/2022 17:06 INDICATION: Chest pain and shortness of breath for 2 days. TECHNIQUE: frontal and lateral views of the chest were obtained. COMPARISON: Chest radiograph dated 05/02/[address] dated 04/25/2022 FINDINGS: Emphysema with increased lucency and architectural distortion in the upper lung zones. Unchanged obli que bandlike discoid atelectasis/scarring in the left upper lobe along the major fissure. Additional chronic atelectasis/scarring adjacent pleural thickening at the right apex. Subtle increased intersti tial pattern in the lower lung zones when compared with the prior study consistent with mild pulmonar y edema. Arch size is normal. Enlargement of the central pulmonary arteries consistent with pulmonary arterial hypertension. IMPRESSION: 1. Emphysema with chronic scarring in the upper lobes. 2. Mild pulmonary edema in the lower lung zones. Reviewed, dictated and finalized at location A.
--- NOTE | 2022-05-18 15:29 | ECG_ITS ---
Measurements Intervals [place] Rate: 103 P: 74 MS: 152 QRS: 144 QRSD: 80 T: 61 QT: 318 QTc: 416 Interpretive Statements SINUS TACHYCARDIA POSSIBLE RIGHT ATRIAL ENLARGEMENT [0.25mV P WAVE] PATTERN CONSISTENT WITH PULMONARY DISEASE RIGHT VENTRICULAR HYPERTROPHY AND ST-T CHANGE [SOME/ALL OF: PROMINENT R IN V1, LATE TRANSITION, RAD, LIN, SSS, RIGHT PRECORDIA] COMPARED TO ECG 04/25/2022 17:03:50 SINUS TACHYCARDIA NOW PRESENT QRS IS NARROWER Electronically Signed On 05-19-2022 15:02:25 CDT by Kelton Lee M.D.
[2022-05-18] MEDS: ASPIRIN 81 MG CHEWABLE TABLET 324 MG PO (16:02)
[2022-05-18 16:03] LABS: Basophils Percent Auto 0.5 % (0.2-1.2); Eosinophils Absolute Auto 0.1 K/mm3 (0-0.3); Eosinophils Percent Auto 1.8 % (0-4.4); Hemoglobin 14.2 g/dL (14.0-18.0); Immature Granulocyte Absolute 0.02 K/mm3 (0.00-0.031); Immature Granulocyte Percent A 0.5 % (0-0.5); Immature Platelet Fraction Pct 6.5 % (0.9-11.2); Lymphocytes Absolute Auto 0.54 K/mm3 (0.9-3.2); Lymphocytes Percent Auto 13.6 % (18.3-44.2); Mean Corpuscular Hemoglobin 36.8 pg (26-34); Mean Corpuscular Volume 111.4 fl (80-100); Mean Platelet Volume 11.7 fl (7.4-10.4); Monocytes Absolute Auto 0.4 K/mm3 (0.1-0.6); Monocytes Percent Auto 10.8 % (2.6-8.5); Neutrophils Absolute Auto 2.9 K/mm3 (1.3-6.7); Neutrophils Percent Auto 72.8 % (45.5-73.1); Platelet Count Result 97 k/mm3 (150-375); Red Blood Count 3.86 M/mm3 (4.6-6.20); Red Cell Distribution Width 16.6 % (11.5-14.5)
[2022-05-18 16:15] LABS: INR 1.2; Prothrombin Time 14.4 Seconds (11.1-14.7)
[2022-05-18 16:23] LABS: Alanine Aminotransferase 23 U/L (6-50); Albumin Level 4.1 g/dL (3.5-5.1); Alkaline Phosphatase 76 U/L (38-126); Anion Gap 9 mmol/L (8-16); Aspartate Amino Transferase 26 U/L (17-59); Blood Urea Nitrogen 15 mg/dL (9-20); Calcium 8.8 mg/dL (8.4-10.2); Carbon Dioxide 25 mmol/L (22-30); Chloride 103 mmol/L (98-107); Estimated Glomerular Filt Rate 52; Glucose 150 mg/dL (65-110); Lipase 141 U/L (23-300); Potassium 2.8 mmol/L (3.4-5.0); Sodium 137 mmol/L (137-145); Troponin I 0.064 ng/mL (0.000-0.034)
[2022-05-18 16:39] LABS: Platelet Estimate Decreased (Adequate); Schistocytes None Seen (NORMAL)
[2022-05-18 16:40] LABS: Anisocytosis 2+ (NORMAL); Macrocytosis 1+ (NORMAL); Polychromasia 1+ (NORMAL)
[2022-05-18 16:49] LABS: Magnesium 1.7 mg/dL (1.6-2.3)
[2022-05-18 16:51] LABS: Alveolar/Arterial O2 Gradient 166.1 mmHg; Base Excess ABG 0.4 mEq/l (+/-2.0); Carboxyhemoglobin 1.7 % THb (0-2.0); Fractional Inspired Oxygen 36 %; HCO3 ABG 22.3 mEq/l (22.0-26.0); Methemoglobin ABG 0.2 %THb (0-1.5); Oxygen Content ABG 17.9 %vol (16.0-22.0); Oxygen Saturation ABG 92.3 % (95.0-100.0); Oxyhemoglobin 88.1 % THb (90.0-100.0); PCO2 ABG 29.1 mmHg (35.0-45.0); PO2 ABG 56.8 mmHg (80.0-100.0); PO2 FiO2 Ratio Arterial Blood 1.58 %; Total Hemoglobin 14.5 g/dL (12.0-18.0)
[2022-05-18 16:53] LABS: Device NASAL CANNULA; Modified Allen's Test Pass; Site Drawn LEFT RADIAL; pH ABG 7.503 (7.350-7.450)
[2022-05-18 16:59] LABS: NT Pro B Type Natriuretic Pept 1500 pg/mL (19.9-100)
--- NOTE | 2022-05-18 17:06 | ED.CHESTPAIN ---
HPI - Chest Pain General Chief Complaint: Chest Pain Stated Complaint: shortness of breath, chest pain Time Seen by Provider: 05/18/22 15:39 Source: patient, RN notes reviewed and old records reviewed Mode of arrival: ambulatory Limitations: no limitations History of Present Illness HPI narrative: This is a 61 year old male with history of chronic respiratory failure, copd oxygen dependence who presents for evaluation of chest pain and shortness of breath. He was last admitted 3 weeks ago and he states that today he had worsening shortness of breath. He also reports intermittent nonradiating chest pain. He denies chest pain now. He denies worsening edema. He reports mild nonproductive cough. He denies fever or chills. He does reports emesis 2 days ago. Related Data Home Medications Medication Instructions Recorded Confirmed aspirin 81 mg tablet,delayed 81 mg PO DAILY 04/25/22 05/18/22 release bicalutamide 50 mg tablet 50 mg PO DAILY 04/25/22 05/18/22 cholecalciferol (vitamin D3) 50 50 mcg PO DAILY 04/25/22 05/18/22 mcg (2,000 unit) capsule (Vitamin D3) fluticasone fur. 100 mcg-umeclid 1 inh inhalation DAILY 04/25/22 05/18/22 62.5 mcg-vilant 25 mcg inhalat.powder (Trelegy Ellipta) furosemide 40 mg tablet 40 mg PO DAILY 04/25/22 05/18/22 megestrol 20 mg tablet 20 mg PO DAILY 04/25/22 05/18/22 multivitamin 1 tablet PO DAILY 04/25/22 05/18/22 Allergies Allergy/AdvReac Type Severity Reaction Status Date / Time garlic AdvReac Vomiting Verified 04/25/22 17:12 green pepper AdvReac Vomiting Verified 04/25/22 17:12 onion AdvReac Vomiting Verified 04/25/22 17:12 Review of Systems Review of Systems: All systems reviewed & are unremarkable except as noted in HPI and below PMFSH Past Medical History Medical History (Updated 05/19/22 @ 17:00 by Maria Victoria Engle MD) Chronic diastolic heart failure Chronic kidney disease Chronic respiratory failure with hypoxia, on home oxygen therapy COPD (chronic obstructive pulmonary disease) 6-8 liters Cor pulmonale Diastolic heart failure Diverticulitis End stage COPD History of prostate cancer PFO (patent foramen ovale) Pulmonary hypertension Surgical History Surgical History Total knee replacement status Bilateral Family History Family History (Updated 05/18/22 @ 23:46 by Lori Barclay NP) Father Cancer Lung cancer Sibling Acute myocardial infarction Social History Social History Social History: The patient is and lives with his mother. He has 2 children. 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 Code status DNR DNI Smoking packs per day: 1.5 Smoking cigarettes per day: 30.0 Years smoked: 26 Smoking pack-years: 39.00 Smoking status: Former smoker Tobacco type: cigarettes Smoking end date: 12/16/21 Additional smoking assessment comments: quit for 15 years in between Alcohol intake: never Substance use: never Substance use type: marijuana Lack of Transportation: No Lack of Food: Never True Current Housing: I Have Housing Concerned About Future Housing: No Difficulty Paying Gas/Electric Bills: No Difficulty Paying for Meds: No Currently Unemployed: No Education: High School Diploma/GED Difficulty w/ Childcare or Family Care: No Spiritual care concerns: No Exam Const: General: alert Nutritional Appearance: well nourished Orientation/consciousness: patient oriented x3 HENMT: Head: normal to inspection Face and sinus: normal facial exam Throat: posterior oropharynx normal Eyes: EOM: EOMs intact bilaterally Neck: Neck: normal visual inspection Chest: Chest palpation & inspection: normal inspection of the chest Resp: Effort & Inspection: normal respiratory effort, not labored, no retractions and no use of accessory muscles Auscultation: no crackles, no r
[2022-05-18] MEDS: POTASSIUM CHLORIDE INJ 40 MEQ in SODIUM CHLORIDE 0.9% IV 500 ML 130 MEQ IVPB (17:36)
[2022-05-18 17:57] LABS: Influenza A QL RT-PCR Negative (Negative); Influenza B QL RT-PCR Negative (Negative); SARS-CoV-2 RNA PCR Negative
[2022-05-18] MEDS: POTASSIUM CHLORIDE 20 MEQ TABLET 40 MEQ PO (17:58)
[2022-05-18 19:04] LABS: Troponin I 0.064 ng/mL (0.000-0.034)
--- NOTE | 2022-05-18 19:49 | PM.IMHP ---
H&P: HPI History of Present Illness Date/Time: 05/18/22 19:49 Chief Complaint: Chest pain Narrative: This is a 61-year-old male patient who has chronic respiratory failure. The patient tells me that he is on oxygen anywhere from 6-8 L. Patient states that he does not have much of a quality of life at home. The patient states he can only walk about 10 ft before he gets short of breath. He was last admitted here 3 weeks ago and states that he continues to have worsened shortness of breath. He stated that he had spoke with somebody concerning hospice and he believes that he may be headed towards hospice. The patient has a nonproductive cough. He denies any fever chills. The patient was discharged from here on 05/03/2022. He was seen by pulmonology at that time. His ABGs today pH 7.502 CO2 29.1 PO2 56.8. His potassium was found to be 2.8 and this was supplemented in the emergency room. The patient was given aspirin, potassium and a nebulizer treatment in the emergency room. When I saw the patient he had been placed on oxygen at 4 L per nasal cannula. Chest x-ray was taken in the emergency room but was not read due to imaging saw for problem. The patient is being admitted to observation status on the date of service of 05/18/2022 Review of Systems Review of Systems: All systems reviewed & are unremarkable except as noted in HPI and below Constitutional: Constitutional: Reports as per HPI and Reports no additional constitutional complaints Eyes: Eyes: Reports as per HPI and Reports no additional eye complaints ENT: Reports system reviewed and no additional complaints, except as documented and Reports Normal hearing present Cardiovascular: Cardiovascular: Reports no additional cardiovascular complaints Respiratory: Respiratory: Reports no additional respiratory complaints and Reports no additional respiratory complaints Gastrointestinal: Gastrointestinal: Reports as per HPI and Reports no additional gastrointestinal complaints Musculoskeletal: Musculoskeletal: Reports no additional musculoskeletal complaints Integumentary/Breasts: Skin/Breast: Reports system reviewed and no additional complaints, except as docu and Reports as per HPI Neurologic: Reports system reviewed and no additional complaints, except as documented, Reports as per HPI and Reports Normal hearing present Psychiatric: Psychiatric: Reports no additional psychiatric complaints and Reports as per HPI Endocrine: Endocrine: Reports no additional endocrine complaints Hematologic/Lymphatic: Hematologic/Lymphatic: Reports no additional hematologic/lymphatic complaints Allergic/Immunologic: Allergic/Immunologic: Reports no additional allergic/immunologic complaints [facility] Past Medical History Medical History Chronic kidney disease Chronic respiratory failure with hypoxia, on home oxygen therapy COPD (chronic obstructive pulmonary disease) 6-8 liters Cor pulmonale Diastolic heart failure Diverticulitis End stage COPD History of prostate cancer PFO (patent foramen ovale) Pulmonary hypertension Surgical History Surgical History Total knee replacement status Bilateral Family History Family History Father Cancer Lung cancer Sibling Acute myocardial infarction Social History Social History Social History: The patient is and lives with his mother. He has 2 children. 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 Code status DNR DNI Smoking packs per day: 1.5 Smoking cigarettes per day: 30.0 Years smoked: 26 Smoking pack-years: 39.00 Smoking status: Former smoker Tobacco type: cigarettes Smoking end date: 12/16/21 Additional smoking assessment comments: quit for 15 years in between Alcohol intake: n
--- NOTE | 2022-05-18 19:49 | PC.NURSE ---
Hospitalist at bedside. Patient requesting food at this time. Hospitalist to put diet order in for patient
[2022-05-18] MEDS: LEVALBUTEROL NEB 1.25 MG/3 ML 0.63 MG INHALATION (20:24)
--- NOTE | 2022-05-18 20:53 | ADMGEN ---
This patient, Bijan Real, was admitted to IMU Room 211-01. Patient/family oriented to hospital policies and general routines including ID bracelet, bed and alarms, visiting hours, pain management, procedures, bathroom and other care routines, personal items, smoking policy, room service/diet, and visiting hours. Information on how to activate the Rapid Response Team has been discussed. Patient/Family are encouraged to report perceived risks to care and to ask questions if they do not understand what they are told or what they should do.
[2022-05-18 21:26] LABS: Glucose Point of Care 93 mg/dl (65-105)
[2022-05-18 22:04] LABS: Troponin I 0.039 ng/mL (0.000-0.034)
[2022-05-19] VITALS (22 sets, daily range): BP systolic 92–111; BP diastolic 56–67; PULSE 73–107; RESP 14–22; TEMP 36.3–36.6; O2SAT 80–100
[2022-05-19 00:22] LABS: Anion Gap 8 mmol/L (8-16); Blood Urea Nitrogen 14 mg/dL (9-20); Calcium 8.2 mg/dL (8.4-10.2); Carbon Dioxide 23 mmol/L (22-30); Chloride 108 mmol/L (98-107); Estimated CRCL calculation 65 ml/min; Estimated Glomerular Filt Rate > 60; Glucose 116 mg/dL (65-110); Magnesium 1.9 mg/dL (1.6-2.3); Potassium 3.6 mmol/L (3.4-5.0); Sodium 139 mmol/L (137-145)
[2022-05-19] MEDS: LEVALBUTEROL NEB 1.25 MG/3 ML 0.63 MG INHALATION ×4 (01:55→20:30)
[2022-05-19] MEDS: IPRATROPIUM BR 0.02% INH SOLN 0.5 MG/2.5 ML VIAL INHALATION ×4 (01:55→20:30)
[2022-05-19 05:22] LABS: Basophils Percent Auto 0.3 % (0.2-1.2); Eosinophils Absolute Auto 0.1 K/mm3 (0-0.3); Eosinophils Percent Auto 3.7 % (0-4.4); Hematocrit 39.3 % (42.0-52.0); Hemoglobin 13.1 g/dL (14.0-18.0); Immature Platelet Fraction Pct 6.2 % (0.9-11.2); Lymphocytes Percent Auto 22.6 % (18.3-44.2); Mean Corpuscular HGB Conc 33.3 g/dl (32-36); Mean Platelet Volume 11.9 fl (7.4-10.4); Monocytes Absolute Auto 0.3 K/mm3 (0.1-0.6); Monocytes Percent Auto 9.3 % (2.6-8.5); Neutrophils Absolute Auto 2.3 K/mm3 (1.3-6.7); Neutrophils Percent Auto 64.1 % (45.5-73.1); Nucleated Red Blood Cells Perc 0.6 % (0.0-0.2); Platelet Count Result 89 k/mm3 (150-375); Red Blood Count 3.54 M/mm3 (4.6-6.20); Red Cell Distribution Width 16.4 % (11.5-14.5); White Blood Count 3.5 K/mm3 (4.5-10.0)
[2022-05-19 05:31] LABS: Lactic Acid Reflex 0.8 mmol/L (0.7-2.0)
[2022-05-19 05:32] LABS: Alanine Aminotransferase 19 U/L (6-50); Albumin Level 3.5 g/dL (3.5-5.1); Alkaline Phosphatase 68 U/L (38-126); Anion Gap 5 mmol/L (8-16); Aspartate Amino Transferase 20 U/L (17-59); Bilirubin,Total 1.1 mg/dL (0.2-1.3); Blood Urea Nitrogen 13 mg/dL (9-20); Calcium 8.5 mg/dL (8.4-10.2); Carbon Dioxide 25 mmol/L (22-30); Chloride 109 mmol/L (98-107); Estimated CRCL calculation 65 ml/min; Estimated Glomerular Filt Rate > 60; Glucose 90 mg/dL (65-110); Magnesium 1.9 mg/dL (1.6-2.3); Potassium 3.6 mmol/L (3.4-5.0); Sodium 139 mmol/L (137-145)
[2022-05-19 08:23] LABS: Glucose Point of Care 87 mg/dl (65-105)
--- NOTE | 2022-05-19 09:18 | PM.IMPN ---
Progress Note: A&P Assessment and Plan (1) Chronic respiratory failure with hypoxia, on home oxygen therapy: Code(s): J96.11 - Chronic respiratory failure with hypoxia; Z99.81 - Dependence on supplemental oxygen Status: Acute Assessment and Plan: ESCOPD, continue levalbuterol/ipratropium/budesonide, oxygen therapy, discussed with pulmonology at last admission, no further recommendations, not hypercapnic--not a candidate for BIPAP therapy, cont supportive care (2) End stage COPD: Code(s): J44.9 - Chronic obstructive pulmonary disease, unspecified Status: Acute Assessment and Plan: As above (3) Chronic diastolic heart failure: Code(s): I50.32 - Chronic diastolic (congestive) heart failure Status: Acute Assessment and Plan: Appears euvolemic, continue oral diuresis per home medications Echo from 04/27/22 showed an EF of 65-70% with grade 1 diastolic dysfunction, small PFO, severely enlarged right ventricle, tricuspid valve regurgitation, mild pulmonary hypertension (4) Chest pain: Code(s): R07.9 - Chest pain, unspecified Status: Acute Assessment and Plan: Mild, likely pleuritic, check ECG, check troponin, consult cardiology Plan PT/OT consult placed, care coordination consulted for hospice referral at discharge DVT prophylaxis with SCDs GI prophylaxis not indicated Code status full code Subjective Date/time seen: 05/19/22 09:18 Interval history: 61yo male with end-stage COPD on 6 L at baseline, right sided heart failure, CKD with baseline appearing to be 1.3-1.5, history of prostate cancer now in remission who presents with worsening shortness of breath. No overnight events noted. No nausea, vomiting or diarrhea. No fevers or chills. He is 92% on 8 L high-flow nasal cannula. He is complaining of some chest pain and tightness across his chest. SOB is somewhat worsened. Review of Systems Review of Systems: 12 point review of systems was assessed and was negative except as noted in the HPI Exam Narrative: General: Mild, acute distress 2/2 anxiety + SOB HEENT: Atraumatic, normocephalic, mucous membranes moist CV: Regular rate and rhythm, S1, S2 Lungs: Diffusely diminished air entry throughout, no crackles or wheezes Abdomen: Soft, nontender, nondistended Extremities: Normal to inspection Skin: No rashes noted, no lesions or wounds seen Objective Data Vital Signs Vital Signs: Vital Signs - 24 hr 05/18/22 15:54 05/18/22 19:37 05/18/22 19:49 Temperature 98.2 F Pulse Rate 95 80 85 Respiratory Rate 18 20 20 Blood Pressure 112/76 114/73 Pulse Oximetry 93 94 93 Oxygen Delivery Nasal Cannula Oxygen Flow Rate 4 05/18/22 20:26 05/18/22 20:34 05/18/22 20:45 Temperature 97.9 F Pulse Rate 78 81 105 H Respiratory Rate 14 18 22 H Blood Pressure 116/59 L Pulse Oximetry 92 Oxygen Delivery Oxygen Flow Rate 05/18/22 20:52 05/18/22 22:00 05/18/22 22:00 Temperature Pulse Rate 89 83 Respiratory Rate Blood Pressure Pulse Oximetry 92 97 Oxygen Delivery High Flow Nasal Cannula High Flow Nasal Cannula Oxygen Flow Rate 8 10 05/18/22 22:45 05/19/22 00:00 05/19/22 00:00 Temperature 98.0 F Pulse Rate 79 84 Respiratory Rate 20 Blood Pressure 125/60 Pulse Oximetry 98 96 Oxygen Delivery High Flow Nasal Cannula Oxygen Flow Rate 8 05/19/22 01:55 05/19/22 02:07 05/19/22 02:00 Temperature Pulse Rate 79 78 81 Respiratory Rate 20 18 Blood Pressure Pulse Oximetry Oxygen Delivery Oxygen Flow Rate 05/19/22 04:00 05/19/22 04:00 05/19/22 04:00 Temperature 97.8 F Pulse Rate 90 78 Respiratory Rate 20 Blood Pressure 105/64 Pulse Oximetry 100 95 Oxygen Delivery High Flow Nasal Cannula Oxygen Flow Rate 8 05/19/22 06:00 05/19/22 08:00 05/19/22 08:30 Temperature 97.8 F Pulse Rate 73 83 81 Respiratory Rate 16 18 Bloo
[2022-05-19] MEDS: FLUTICASONE/UMECLIDIN/VILANTER 100-62.5-25 MCG ELLIPTA 1 PUFF INHALATION (09:22)
[2022-05-19] MEDS: BICALUTAMIDE (*CHEMO) 50 MG TABLET PO (09:34)
[2022-05-19] MEDS: CHOLECALCIFEROL 1,000 UNITS TABLET 2000 UNITS PO (09:34)
[2022-05-19] MEDS: FUROSEMIDE 40 MG TABLET PO (09:35)
[2022-05-19] MEDS: ASPIRIN 81 MG ENTERIC TABLET PO (09:35)
[2022-05-19] MEDS: POTASSIUM CHLORIDE 20 MEQ PACKET (FOR LIQUID) 40 MEQ PO (09:35)
[2022-05-19] MEDS: MEGESTROL ACETATE (*CHEMO) 20 MG TABLET PO (09:35)
[2022-05-19] MEDS: MULTIVITAMINS THERAPEUTIC TAB (*BKC) 1 TABLET PO (09:35)
[2022-05-19 12:01] LABS: Lactic Acid Reflex 1.8 mmol/L (0.7-2.0)
[2022-05-19 12:04] LABS: Glucose Point of Care 106 mg/dl (65-105)
[2022-05-19] MEDS: SIMETHICONE 80 MG TAB.CHEW PO ×2 (12:59→17:36)
--- NOTE | 2022-05-19 13:38 | ECG_ITS ---
Measurements Intervals [place] Rate: 83 P: 67 AL: 141 QRS: 129 QRSD: 65 T: 52 QT: 343 QTc: 404 Interpretive Statements SINUS RHYTHM PATTERN CONSISTENT WITH PULMONARY DISEASE RIGHT VENTRICULAR HYPERTROPHY AND ST-T CHANGE [SOME/ALL OF: PROMINENT R IN V1, LATE TRANSITION, RAD, LIN, SSS, RIGHT PRECORDIAL WARNING: DATA QUALITY MAY AFFECT INTERPRETATION INTERPRETATION BASED ON A DEFAULT AGE OF 40 YEARS COMPARED TO ECG 05/18/2022 15:31:44 SINUS RHYTHM NOW PRESENT Electronically Signed On 05-19-2022 16:16:55 CDT by Kelton Lee M.D.
[2022-05-19] MEDS: BUDESONIDE RESPULE NEB 0.5 MG/2 ML AMP INHALATION ×2 (13:44→20:30)
[2022-05-19 15:22] LABS: Troponin I 0.015 ng/mL (0.000-0.034)
--- NOTE | 2022-05-19 15:41 | PCOTNOTE ---
Addendum entered by Hilary Meyers OT 05/19/22 16:45: Hospitalist , Arash, contacted and agreed to cancelation of orders. Original Note: Attempted to see pt. for occupational therapy evaluation. Pt. has decided to transition to hospice services and declines need for therapy at this time. Nursing aware. Will follow up with Hospitalist.
[2022-05-19 20:03] LABS: Glucose Point of Care 136 mg/dl (65-105)
[2022-05-20] VITALS (12 sets, daily range): BP systolic 106–107; BP diastolic 56–66; PULSE 85–120; RESP 18–20; TEMP 36.2–36.4; O2SAT 92–97
[2022-05-20] MEDS: LEVALBUTEROL NEB 1.25 MG/3 ML 0.63 MG INHALATION ×3 (02:00→13:05)
[2022-05-20] MEDS: IPRATROPIUM BR 0.02% INH SOLN 0.5 MG/2.5 ML VIAL INHALATION ×3 (02:00→13:05)
[2022-05-20] MEDS: BUDESONIDE RESPULE NEB 0.5 MG/2 ML AMP INHALATION (07:20)
[2022-05-20 07:52] LABS: Glucose Point of Care 120 mg/dl (65-105)
[2022-05-20] MEDS: FUROSEMIDE 40 MG TABLET PO (08:23)
[2022-05-20] MEDS: CHOLECALCIFEROL 1,000 UNITS TABLET 2000 UNITS PO (08:23)
[2022-05-20] MEDS: SIMETHICONE 80 MG TAB.CHEW PO (08:23)
[2022-05-20] MEDS: POTASSIUM CHLORIDE 20 MEQ PACKET (FOR LIQUID) 40 MEQ PO (08:23)
[2022-05-20] MEDS: MEGESTROL ACETATE (*CHEMO) 20 MG TABLET PO (08:23)
[2022-05-20] MEDS: BICALUTAMIDE (*CHEMO) 50 MG TABLET PO (08:23)
[2022-05-20] MEDS: MULTIVITAMINS THERAPEUTIC TAB (*BKC) 1 TABLET PO (08:23)
[2022-05-20] MEDS: ASPIRIN 81 MG ENTERIC TABLET PO (08:24)
[2022-05-20 08:42] LABS: Glucose Point of Care 101 mg/dl (65-105)
[2022-05-20] MEDS: ACETAMINOPHEN 500 MG TABLET 1000 MG PO (09:46)
--- NOTE | 2022-05-20 11:14 | PM.CNCAR ---
Assessment and Plan Assessment and plan (1) PFO (patent foramen ovale): Code(s): Q21.12 - Patent foramen ovale Status: Acute Assessment and Plan: Patient does have a PFO but is unlikely to be causing his significant dyspnea. It may be a contributing factor if the shunt is large enough but at this point it appears that the decision has been made to proceed with hospice given his underlying severe COPD. (2) Acute on chronic respiratory failure with hypoxemia: Code(s): J96.21 - Acute and chronic respiratory failure with hypoxia Status: Acute Assessment and Plan: Continue nebs and oxygen (3) Elevated troponin: Code(s): R77.8 - Other specified abnormalities of plasma proteins Status: Acute Assessment and Plan: Low-dose aspirin 81 mg p.o. daily to be continued (4) Pulmonary hypertension: Code(s): I27.20 - Pulmonary hypertension, unspecified Status: Acute Assessment and Plan: Likely predominantly secondary to underlying COPD Cardiology to sign off History of Present Illness History of Present Illness Consult date/time: 05/20/22 11:14 Requesting physician: Glenda Thompson, Consult reason: shortness of breath Reason For Visit: Hypokalemia,Dyspnea,Chronic Respiratory Failure,El Narrative: Date of service 05/20/2022: Reason for consultation: Shortness of breath, PFO, chronic respiratory failure Requesting provider: Glenda Thompson History: Patient is a 61-year-old male with chronic respiratory failure who is on chronic oxygen who came back to the hospital because of worsening shortness of breath. He states that his dyspnea never significantly improved following his last hospitalization. Saw his primary care provider who told him to come back to the hospital. Patient does have a PFO and there was some concern about the PFO causing issues with his dyspnea. He denies any chest pain. His shortness of breath with almost any activity. No paroxysmal nocturnal dyspnea, orthopnea, edema, syncope, presyncope, palpitations. Review of Systems Review of Systems: All systems reviewed & are unremarkable except as noted in HPI and below Constitutional: Constitutional: Denies body ache(s) Eyes: Eyes: Denies blurry vision ENT: Reports Normal hearing present Cardiovascular: Cardiovascular: Denies chest pain Respiratory: Respiratory: Denies chest congestion and Reports dyspnea Gastrointestinal: Gastrointestinal: Denies abdominal pain Genitourinary: Genitourinary: Denies hematuria Musculoskeletal: Musculoskeletal: Denies back pain Integumentary/Breasts: Skin/Breast: Reports dry skin Neurologic: Denies Abnormal speech present Psychiatric: Psychiatric: Reports anxiety Endocrine: Endocrine: Denies excessive sweating Hematologic/Lymphatic: Hematologic/Lymphatic: Denies easy bleeding Allergic/Immunologic: Allergic/Immunologic: Denies GI upset with certain foods PMFSH Past Medical History Medical History Chronic diastolic heart failure Chronic kidney disease Chronic respiratory failure with hypoxia, on home oxygen therapy COPD (chronic obstructive pulmonary disease) 6-8 liters Cor pulmonale Diastolic heart failure Diverticulitis End stage COPD History of prostate cancer PFO (patent foramen ovale) Pulmonary hypertension Surgical History Surgical History Total knee replacement status Bilateral Family History Family History Father Cancer Lung cancer Sibling Acute myocardial infarction Social History Social History Social History: The patient is and lives with his mother. He has 2 children. 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 Code status DNR DNI Smoking packs per day: 1.5
--- NOTE | 2022-05-20 12:28 | PM.DS ---
DS: Admitting Diagnosis Discharge Date 05/20/22 Admitting Diagnosis sob DS: Discharge Diagnosis Discharge Diagnosis (1) Chronic respiratory failure with hypoxia, on home oxygen therapy: Code(s): J96.11 - Chronic respiratory failure with hypoxia; Z99.81 - Dependence on supplemental oxygen Status: Acute Assessment and Plan: ESCOPD, continue levalbuterol/ipratropium/budesonide, oxygen therapy, discussed with pulmonology at last admission, no further recommendations, not hypercapnic--not a candidate for BIPAP therapy, cont supportive care (2) End stage COPD: Code(s): J44.9 - Chronic obstructive pulmonary disease, unspecified Status: Acute Assessment and Plan: As above (3) Chronic diastolic heart failure: Code(s): I50.32 - Chronic diastolic (congestive) heart failure Status: Acute Assessment and Plan: Appears euvolemic, continue oral diuresis per home medications Echo from 04/27/22 showed an EF of 65-70% with grade 1 diastolic dysfunction, small PFO, severely enlarged right ventricle, tricuspid valve regurgitation, mild pulmonary hypertension (4) Chest pain: Code(s): R07.9 - Chest pain, unspecified Status: Acute Assessment and Plan: Mild, likely pleuritic, check ECG, check troponin, consult cardiology Plan PT/OT consult placed, care coordination consulted for hospice referral at discharge DVT prophylaxis with SCDs GI prophylaxis not indicated Code status full code DS: Summary Hospital Course Hospital Course: 61-year-old male with chronic respiratory failure due to end-stage COPD on 60 L at baseline is presenting with increased shortness of breath. Cardiology was consulted due to a PFO as well as abnormal EKG and stated they had no further recommendations for medications for comfort. Hospice was consulted and the patient was discharged into their care. Time Spent with Patient Time attestation: Total time spent providing and/or coordinating discharge services: Exam Narrative: General: Mild, acute distress 2/2 anxiety + SOB HEENT: Atraumatic, normocephalic, mucous membranes moist CV: Regular rate and rhythm, S1, S2 Lungs: Diffusely diminished air entry throughout, no crackles or wheezes Abdomen: Soft, nontender, nondistended Extremities: Normal to inspection Skin: No rashes noted, no lesions or wounds seen DS: Data Data Completed and Pending Labs on day of discharge: Labs from last 24 hours 05/20/22 05/19/22 05/19/22 07:52 19:58 16:15 POC Capillary Glucose 101 136 H 120 H Troponin I 05/19/22 14:47 POC Capillary Glucose Troponin I 0.015 Discharge Plan Discharge Attending physician on discharge: Glenda Thompson Consulting providers: Kelton Lee Discharging Clinician: Glenda Thompson Patient Disposition: Hospice - Home Activity: as tolerated Diet: as tolerated Patient Instructions: How to Stop Smoking (DC) Stand Alone Forms: General Discharge Information Follow-up/Referrals: Michelle,Elin Kaye MD [Primary Care Provider] - Discharge Medications: Continued multivitamin Tablet 1 tablet PO DAILY furosemide 40 mg tablet 40 mg PO DAILY bicalutamide 50 mg tablet 50 mg PO DAILY aspirin 81 mg tablet,delayed release (DR/EC) 81 mg PO DAILY megestrol 20 mg tablet 20 mg PO DAILY cholecalciferol (vitamin D3) [Vitamin D3] 50 mcg (2,000 unit) Capsule 50 mcg PO DAILY Trelegy Ellipta 100-62.5-25 mcg Blister With Device 1 inh INHALATION DAILY albuterol sulfate 2.5 mg /3 mL (0.083 %) Solution For Nebulization 2.5 mg inhalation TID Qty: 90 0RF Date of admission: 05/18/22 18:35 Primary Care Provider: MichelleElin Admitting Provider: Glenda Thompson Attending physician on admission: Glenda Thompson Condition: Stable
== END 2022-05-20 13:30 | disposition hospice, home (50) ==
LOC: ANHED 16:00 → ANHIMU 20:13
PROVIDERS: Emergency Medicine; Nurse Practitioner; Admitting Provider Student in an Organized Health Care Education/Training Program; Emergency Provider General Practice; PCP Internal Medicine; Visit Provider Student in an Organized Health Care Education/Training Program
DX: J96.11 Chronic respiratory failure with hypoxia (principal); Z99.81 Dependence on supplemental oxygen; J44.9 Chronic obstructive pulmonary disease, unspecified; R77.8 Other specified abnormalities of plasma proteins; Q21.12 Patent foramen ovale; J96.21 Acute and chronic respiratory failure with hypoxia; I27.20 Pulmonary hypertension, unspecified; I13.0 Hypertensive heart and chronic kidney disease with heart failure and stage 1 through stage 4 chronic kidney disease, or unspecified chronic kidney disease; N18.9 Chronic kidney disease, unspecified; I50.32 Chronic diastolic (congestive) heart failure; R07.9 Chest pain, unspecified; R05.9 Cough, unspecified; Z20.822 Contact with and (suspected) exposure to COVID-19; R00.0 Tachycardia, unspecified; E87.6 Hypokalemia; I25.2 Old myocardial infarction; Z87.891 Personal history of nicotine dependence; Z85.46 Personal history of malignant neoplasm of prostate; Z79.82 Long term (current) use of aspirin; Z79.51 Long term (current) use of inhaled steroids; Z79.899 Other long term (current) drug therapy; Z82.49 Family history of ischemic heart disease and other diseases of the circulatory system
CPT/HCPCS: 36415; 36600; 71046; 80048; 80053; 82375; 82805; 82948; 83050; 83605; 83690; 83735; 83880; 84484; 85025; 85055; 85610; 85730; 87636; 93005; 94640; 96374; 97161; 99285; A9270; G0378; G0379; J3480; J7040